=== PATIENT | male | born 1945 | race Caucasian/White ===

== ENCOUNTER 2018-01-10 13:11 | Outpatient (CLI) | payer OTHER ==
[2018-01-10 19:40] LABS: HIV RAPID SCREEN NEGATIVE (NEGATIVE)
[2018-01-11 11:18] LABS: HEPATITIS B SURFACE ANTIGEN NON-REACTIVE (NON-REACTIVE); HEPATITIS C ANTIBODY NON-REACTIVE (NON-REACTIVE)
[2018-01-11 13:36] LABS: HIV AG/AB 4TH GEN NON-REACTIVE (NON-REACTIVE)
== END 2018-01-10 13:12 | disposition home or self-care (01) ==
LOC: LAB.R 13:11
PROVIDERS: ATTEND Internal Medicine
DX: T75.89XA Other specified effects of external causes, initial encounter (principal)
CPT/HCPCS: 86803; 87340; 87389

== ENCOUNTER 2018-02-20 00:26 | Emergency (ER) | payer OTHER ==
--- NOTE | 2018-02-20 02:43 | ED Physician Documentation ---
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 The son is been given his father MiraLAX daily without results. He did do some manual disimpaction with small results and he was reluctant to do further. He states that the patient has had blood in his stool and a workup is scheduled for the of this month. The son notes that in the 2 months he has been taking care of him he has noted a pattern of constipation. Review of Systems Constitutional: denies: Fever Eyes: denies: Decreased vision Ears: denies: Ear pain Nose: denies: Congestion Throat: denies: Sore throat Respiratory: denies: Cough GI: reports: Abdominal Pain, Constipation : denies: Dysuria, Frequency Skin: denies: Rash Musculoskeletal: denies: Neck pain, Back pain, Extremity pain Neurologic: denies: Generalized weakness, Focal weakness, Numbness PD PAST MEDICAL HISTORY - Past Medical History Past Medical History: Yes Cardiovascular: Hypertension, High cholesterol, [place], Atrial fibrillation Neuro: CVA, Peripheral neuropathy Endocrine/Autoimmune: Type 2 diabetes : Indwelling catheter Musculoskeletal: Hemiplegia Other Past Medical History: 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, Agent [place] exposure, irritable bowel, - Past Surgical History General: Bowel surgery Ortho: Spine surgery Cardiovascular: CABG - Present Medications Home Medications: Ambulatory Orders Medication Instructions Recorded Confirmed Amiodarone [Pacerone] 200 mg PO DAILY 02/20/18 02/20/18 Apixaban [Eliquis] 5 mg PO DAILY 02/20/18 02/20/18 Carboxymethylcellulose Sodium 0 ml OP QID 02/20/18 02/20/18 [Lubricant Eye Drop] Cholecalciferol [Vitamin D3] 5,000 unit PO DAILY 02/20/18 02/20/18 Fluticasone [Flonase] 1 sprays JUAN C DAILY 02/20/18 02/20/18 Insulin Glargine [Lantus Solostar] 0 unit SQ DAILY 02/20/18 02/20/18 Levothyroxine [Synthroid] 15 mcg PO QDAC 02/20/18 02/20/18 Losartan [Cozaar] 12.5 mg PO DAILY 02/20/18 02/20/18 Metoprolol Tartrate [Lopressor] 25 mg PO BID 02/20/18 02/20/18 RX: Gabapentin 300 mg PO TID 02/20/18 02/20/18 RX: Glimepiride 4 mg PO DAILY 02/20/18 02/20/18 RX: Isosorbide Dinitrate 5 mg PO TID 02/20/18 02/20/18 RX: Magnesium Oxide 420 mg PO DAILY 02/20/18 02/20/18 RX: Mirtazapine 15 mg PO DAILY 02/20/18 02/20/18 Tamsulosin [Flomax] 0.4 mg PO DAILY 02/20/18 02/20/18 Ubidecarenone [Coenzyme Q-10] 0 mg PO DAILY 02/20/18 02/20/18 raNITIdine [Zantac] 150 mg PO DAILY 02/20/18 02/20/18 - Allergies Allergies/Adverse Reactions: Allergies Allergy/AdvReac Type Severity Reaction Status Date / Time codeine Allergy Unknown Verified 02/20/18 00:49 meperidine [From Demerol] Allergy Unknown Verified 02/20/18 00:49 acetaminophen [From Vicodin] AdvReac Itching Verified 02/20/18 00:49 hydrocodone [From Vicodin] AdvReac Itching Verified 02/20/18 00:49 - Social History Does the pt smoke?: No Smoking Status: Never smoker Does the pt drink ETOH?: Yes Does the pt have substance abuse?: No - POLST Patient has POLST: No PD ED PE NORMAL - Vitals Vital signs reviewed: Yes (normal ) - General General: No acute distress, Well developed/nourished - HEENT HEENT: Atraumatic, PERRL, EOMI - Respiratory Respiratory: No respiratory distress - Abdomen Abdomen: Normal bowel sounds, Soft, Non tender, Non distended, No organomegaly - Back Back: No CVA TTP, No spinal TTP - Derm Derm: Normal color, Warm and dry, No rash - Neuro Neuro: Normal speech Eye Opening: Spontaneous Motor: Obeys Commands Verbal: Oriented GCS Score: 15 - Psych Psych: Normal mood, Normal affect Results - Vitals Vitals: Vital Signs - 24 hr 02/20/18 02/20/18 00:25 03:26 Temperature 36.5 C Heart Rate 82 80 Respiratory 17 18 Rate Blood Pressure 112/62 102/62 O2 Saturation 96 95 Oxygen O2 Source Room air PD MEDICAL DECISION MAKING - ED course Complexity details: considered differential, d/w patient, d/w family ED course: 72-year-old male with a history of 6 days of constipation is administered a oil retention enema with excellent results. Departure - Departure Disposition: 01 Home, Self Care Clinical Impression: Constipation Condition: Stable Instructions: ED Constipation Follow-Up: Sammie Rush ARNP [Primary Care Provider] - Discharge Date/Time: 02/20/18 03:29
[2018-02-20 03:34] VITALS: BP 102/62
== END 2018-02-20 03:29 | disposition home or self-care (01) ==
LOC: EDUNIT# → ED 00:26
DX: K59.00 Constipation, unspecified (principal); I10 Essential (primary) hypertension; E11.42 Type 2 diabetes mellitus with diabetic polyneuropathy; E78.00 Pure hypercholesterolemia, unspecified; I25.2 Old myocardial infarction; I69.954 Hemiplegia and hemiparesis following unspecified cerebrovascular disease affecting left non-dominant side
CPT/HCPCS: 99283

== ENCOUNTER 2018-05-25 07:39 | Outpatient (CLI) | payer OTHER | END 2018-05-25 07:40 | disposition EMS.NT | LOC: EMS 07:39 | PROVIDERS: ATTEND Surgery | DX: R31.0 Gross hematuria (principal); Z96.0 Presence of urogenital implants ==

== ENCOUNTER 2018-05-31 22:15 | Outpatient (CLI) | payer OTHER | END 2018-05-31 22:16 | disposition short-term general hospital (02) | LOC: EMS 22:15 | PROVIDERS: ATTEND Surgery | DX: R34 Anuria and oliguria (principal); R30.9 Painful micturition, unspecified; R25.2 Cramp and spasm | CPT/HCPCS: A0425; A0429 ==

== ENCOUNTER 2018-08-10 07:12 | Outpatient (CLI) | payer OTHER | END 2018-08-10 07:13 | disposition critical access hospital (66) | LOC: EMS 07:12 | PROVIDERS: ATTEND Surgery | DX: M25.552 Pain in left hip (principal); S09.90XA Unspecified injury of head, initial encounter; M54.9 Dorsalgia, unspecified; W06.XXXA Fall from bed, initial encounter; Y92.003 Bedroom of unspecified non-institutional (private) residence as the place of occurrence of the external cause; Z79.01 Long term (current) use of anticoagulants | CPT/HCPCS: A0425; A0429 ==

== ENCOUNTER 2018-08-10 07:39 | Emergency (ER) | payer OTHER ==
--- NOTE | 2018-08-10 08:01 | ED Physician Documentation ---
PD HPI Fall - Stated complaint Stated Complaint: GLF - Chief complaint Chief Complaint: Trauma Hd/Nk - History obtained from History obtained from: Patient, EMS - History of Present Illness Fall distance: From bed Where injury occurred: Home Timing - onset: How many hours ago (1) Injury(ies) location: Left Uppper Extremity, Left Lower Extremity Quality of pain: Pain Associated symptoms: Neck pain. No: LOC, Nausea / vomiting Contributing factors: Anticoagulated Similar symptoms before: Has not had sx before - Additional information Additional information: The patient is a 72-year-old male with a history of CVA with left hemiparesis, insulin-dependent diabetes, atrial fibrillation on Eliquis, and coronary artery disease, who presents after falling out of bed this morning hitting his head. He denies loss of consciousness, nausea or vomiting. He complains of pain in his left shoulder and left hip. He denies headache or visual disturbance. He has not attempted to stand since the incident occurred, stating that he is not able to stand at baseline because of his left hemiparesis. He lives in his own home where his son is his caregiver. He has a chronic indwelling Bazan catheter. His blood sugar by paramedics report is 226. Review of Systems Constitutional: denies: Fever Eyes: denies: Decreased vision Ears: denies: Tinnitus/ringing Nose: denies: Congestion Throat: denies: Sore throat Cardiac: denies: Chest pain / pressure Respiratory: denies: Dyspnea, Cough GI: denies: Abdominal Pain, Nausea, Vomiting : reports: Other (Indwelling Bazan catheter.) Skin: denies: Rash Musculoskeletal: reports: Neck pain (Mild.), Back pain (Chronic lower back pain.), Joint pain (Left hip and left shoulder.) Neurologic: reports: Focal weakness (Left hemiplegia due to CVA.). denies: Headache, LOC PD PAST MEDICAL HISTORY - Past Medical History Cardiovascular: Hypertension, High cholesterol, [place], Atrial fibrillation Neuro: CVA, Peripheral neuropathy Endocrine/Autoimmune: Type 2 diabetes, HyPOthyroidism : Indwelling catheter Musculoskeletal: Hemiplegia - Past Surgical History General: Bowel surgery Ortho: Spine surgery Cardiovascular: CABG - Present Medications Home Medications: Ambulatory Orders Medication Instructions Recorded Confirmed Amiodarone [Pacerone] 200 mg PO DAILY 02/20/18 08/10/18 Apixaban [Eliquis] 5 mg PO BID 02/20/18 08/10/18 Carboxymethylcellulose Sodium 0 ml OP QID PRN 02/20/18 08/10/18 [Lubricant Eye Drop] Cholecalciferol [Vitamin D3] 5,000 unit PO DAILY 02/20/18 08/10/18 Fluticasone [Flonase] 1 sprays JUAN C DAILY 02/20/18 08/10/18 Gabapentin 300 mg PO BID 02/20/18 08/10/18 Glimepiride 4 mg PO DAILY 02/20/18 02/20/18 Insulin Glargine [Lantus Solostar] 0 unit SQ DAILY 02/20/18 02/20/18 Isosorbide Dinitrate 5 mg PO TID 02/20/18 08/10/18 Levothyroxine [Synthroid] 15 mcg PO QDAC 02/20/18 08/10/18 Losartan [Cozaar] 12.5 mg PO DAILY 02/20/18 08/10/18 Magnesium Oxide 420 mg PO BID 02/20/18 08/10/18 Metoprolol Tartrate [Lopressor] 25 mg PO BID 02/20/18 08/10/18 Mirtazapine 15 mg PO QPM 02/20/18 08/10/18 Tamsulosin [Flomax] 0.8 mg PO QPM 02/20/18 08/10/18 Ubidecarenone [Coenzyme Q-10] 0 mg PO DAILY 02/20/18 08/10/18 raNITIdine [Zantac] 150 mg PO BID 02/20/18 08/10/18 Nitrofurantoin Monohyd/M-Cryst 100 mg PO BID #10 capsule 08/10/18 [Macrobid 100 mg Capsule] - Allergies Allergies/Adverse Reactions: Allergies Allergy/AdvReac Type Severity Reaction Status Date / Time codeine Allergy Unknown Verified 08/10/18 07:50 meperidine [From Demerol] Allergy Unknown Verified 08/10/18 07:50 acetaminophen [From Vicodin] AdvReac Itching Verified 08/10/18 07:50 hydrocodone [From Vicodin] AdvReac Itching Verified 08/10/18 07:50 - Social History Does the pt smoke?: No Smoking Status: Never smoker Does the pt drink ETOH?: Yes Does the pt have substance abuse?: No - POLST Patient has POLST: No PD ED PE NORMAL - Vitals Vital signs reviewed: Yes (Borderline systolic hypertension initially.) - General General: Alert and oriented X 3, Well developed/nourished, Other ([place]o nditioned.) - HEENT HEENT: PERRL, EOMI, Pharynx benign, Other (There is a superficial abrasion at the lateral aspect of the left eyebrow, with associated ecchymosis.) - Neck Neck: Supple, no meningeal sign, Other (There is mild tenderness to palpation in the left paracervical region.) - Cardiac Cardiac: RRR, No murmur - Respiratory Respiratory: No respiratory distress, Clear bilaterally, Other (There is mild tenderness to palpation along the left side of the chest wall. No ecchymosis or bony step-off palpated.) - Abdomen Abdomen: Soft, Other (Mild diffuse discomfort to palpation, without guarding or rebound. No focal tenderness.) - Male Male : Other (Bazan catheter is in place. Urine appears cloudy.) - Back Back: No CVA TTP, No spinal TTP - Derm Derm: No rash - Extremities Extremities: No calf tenderness / cord, Other (Lymphedema of the left lower extremity. There is tenderness to palpation of the left hip, exacerbated with internal and external rotation of the left leg. There is also tenderness to palpation of the left shoulder. Flexion contractures of the left upper extremity.) - Neuro Neuro: Alert and oriented X 3, Normal speech, Other (Left hemiplegia consistent with previous stroke.) Results - Vitals Vitals: Oxygen O2 Source Room air - EKG (time done) 09:05 Rate: Rate (enter#) (69) Rhythm: NSR [place]: Normal Intervals: Prolonged ME (borderline), RBBB Ischemia: T wave inversion (in V1-V3, consistent with RBBB.) Compare to prior EKG: Old EKG unavailable Computer interpretation: Agree with computer - Labs Labs: Microbiology 08/10/18 07:58 Urine Culture - Preliminary Urine,Catheterized Laboratory Tests 08/10/18 08/10/18 08/10/18 07:58 07:58 07:58 WBC 12.6 H RBC 3.94 L Hgb 11.5 L Hct 34.3 L MCV 87.2 MCH 29.1 MCHC 33.4 RDW 16.3 H Plt Count 187 MPV 7.6 Neut # (Auto) 11.7 H Lymph # (Auto) 0.4 L [place] # (Auto) 0.2 Eos # (Auto) 0.0 Baso # (Auto) 0.2 H Absolute Nucleated RBC 0.00 Nucleated RBC % 0.0 Sodium 141 Potassium 4.3 Chloride 105 Carbon Dioxide 22 Anion Gap 14.0 H BUN 18 Creatinine 1.6 H Estimated GFR (MDRD) 43 L Glucose 253 H Lactic Acid Calcium 9.1 Total Bilirubin 0.9 AST 18 ALT 15 Alkaline Phosphatase 100 Troponin I < 0.04 Total Protein 7.2 Albumin 3.6 Globulin 3.6 Albumin/Globulin Ratio 1.0 Lipase 23 Urine Color Urine Clarity Urine pH Ur Specific [place] Urine Protein Urine Glucose (UA) Urine Ketones Urine Occult Blood Urine Nitrite Urine Bilirubin Urine Urobilinogen Ur Leukocyte Esterase Urine RBC Urine WBC Ur Squamous Epith Cells Urine Bacteria Ur Microscopic Review Urine Culture Comments 08/10/18 08/10/18 07:58 07:58 WBC RBC Hgb Hct MCV MCH MCHC RDW Plt Count MPV Neut # (Auto) Lymph # (Auto) [place] # (Auto) Eos # (Auto) Baso # (Auto) Absolute Nucleated RBC Nucleated RBC % Sodium Potassium Chloride Carbon Dioxide Anion Gap BUN Creatinine Estimated GFR (MDRD) Glucose Lactic Acid 1.4 Calcium Total Bilirubin AST ALT Alkaline Phosphatase Troponin I Total Protein Albumin Globulin Albumin/Globulin Ratio Lipase Urine Color YELLOW Urine Clarity CLOUDY Urine pH 7.0 Ur Specific [place] 1.015 Urine Protein 30 H Urine Glucose (UA) 250 H Urine Ketones 15 H Urine Occult Blood MODERATE H Urine Nitrite POSITIVE H Urine Bilirubin NEGATIVE Urine Urobilinogen 1 (NORMAL) Ur Leukocyte Esterase LARGE H Urine RBC 6-10 H Urine WBC >25 H Ur Squamous Epith Cells NONE SEEN Urine Bacteria Few Ur Microscopic Review INDICATED Urine Culture Comments INDICATED - Rads (name of study) 1-view CXR Radiology: Prelim report reviewed, EMP read contemporaneously, See rad report (Decreased left lung volume. Left perihilar, lower lung field areas of atelectasis or scarring. Old left second rib fracture. Old left clavicle fracture.) Head CT Radiology: Prelim report reviewed, EMP read contemporaneously, See rad report (1) No intracranial hemorrhage or skull fracture. 2) Mild diffuse cerebral volume loss. 3) Evidence of remote infarction involving the posterior limb of the right internal capsule.) C-spine CT Radiology: Prelim report reviewed, EMP read contemporaneously, See rad report (No fracture or subluxation in the cervical spine. Moderate multilevel degenerative change as described above.) Left hip Radiology: Prelim report reviewed, EMP read contemporaneously, See rad report (Osteopenia. No fracture on x-ray imaging. Note: Osteopenia can limit detection of trabecular fracture. If the patient cannot ambulate recommend MRI hip to exclude occult fracture.) Left shoulder Radiology: Prelim report reviewed, EMP read contemporaneously, See rad report (Moderate DJD. No new fracture.) PD MEDICAL DECISION MAKING - ED course Complexity details: reviewed old records, reviewed results, re-evaluated patient, considered differential, d/w patient, d/w family ED course: The patient's presentation is significant for urinary tract infection in a non- ambulatory male with a chronic indwelling Bazan catheter. He does not appear septic, and his clinical evaluation does not suggest pyelonephritis. Evaluation for possible injuries resulting from rolling out of bed reveals contusion to the left side of the head, without intracranial injury on head CT. Additionally there is no CT evidence of C-spine fracture, and no xray evidence of shoulder fracture or left hip fracture. The patient is nonambulatory at baseline, so ambulation was not able to be tested in the emergency department. Treatment in the emergency department included administration of ceftriaxone 1 g IV, and replacement of the Bazan catheter. I discussed with him and his son the results of the work-up, outpatient antibiotic treatment and follow-up, as well as potentially worrisome signs or symptoms that should prompt reevaluation in the emergency department. He is being discharged with a prescription for Macrobid. Departure - Departure Disposition: 01 Home, Self Care Clinical Impression: Left hemiplegia Fall Qualifiers: Encounter type: initial encounter Qualified Code(s): W19.XXXA - Unspecified fall, initial encounter Scalp contusion Qualifiers: Encounter type: initial encounter Qualified Code(s): S00.03XA - Contusion of scalp, initial encounter UTI (urinary tract infection) Qualifiers: Urinary tract infection type: acute cystitis Hematuria presence: without hematuria Qualified Code(s): N30.00 - Acute cystitis without hematuria Contusion of left shoulder Qualifiers: Encounter type: initial encounter Qualified Code(s): S40.012A - Contusion of left shoulder, initial encounter Contusion of left hip Qualifiers: Encounter type: initial encounter Qualified Code(s): S70.02XA - Contusion of left hip, initial encounter Diabetes mellitus with hyperglycemia Qualifiers: Diabetes mellitus type: type 2 Diabetes mellitus fdc insulin use: with terminal operations manager use Qualified Code(s): E11.65 - Type 2 diabetes mellitus with hyperglycemia; Z79.4 - halfway (current) use of insulin Condition: Stable Instructions: ED UTI Cystitis Male Follow-Up: Sammie Rush ARNP [Physician No Access] - Prescriptions: Nitrofurantoin Monohyd/M-Cryst [Macrobid 100 mg Capsule] 100 mg PO BID #10 capsule Comments: Take Macrobid twice daily as prescribed. Drink plenty of fluids, including cranberry juice. You can use ibuprofen, up to 800 mg 3 times daily, if needed for discomfort. Follow-up with your primary physician within 2 weeks. Call to schedule an appointment. Return to the emergency department if you develop increasing abdominal pain, fever with shaking chills, shortness of breath, or otherwise worsening symptoms. Discharge Date/Time: 08/10/18 11:58
[2018-08-10 08:08] LABS: BASOPHILS # (AUTO) 0.2 10^3/uL (0.0-0.1); BASOPHILS % (AUTO) 1.5 %; BILIRUBIN,URINE NEGATIVE (NEGATIVE); EOSINOPHILS % (AUTO) 0.4 %; GLUCOSE, URINE (UA) 250 mg/dL (NEGATIVE); HGB - HEMOGLOBIN 11.5 g/dL (14.0-18.0); KETONES,URINE (UA) 15 mg/dL (NEGATIVE); LEUKOCYTE ESTERASE, URINE LARGE (NEGATIVE); LYMPHOCYTES # (AUTO) 0.4 10^3/uL (1.5-3.5); LYMPHOCYTES % (AUTO) 3.2 %; MEAN CORPUSCULAR HEMOGLOBIN 29.1 pg (27.0-31.0); MEAN CORPUSCULAR HGB CONC 33.4 g/dL (32.0-36.0); MEAN CORPUSCULAR VOLUME 87.2 fL (80.0-94.0); MEAN PLATELET VOLUME 7.6 fL (7.4-11.4); MONOCYTES # (AUTO) 0.2 10^3/uL (0.0-1.0); MONOCYTES % (AUTO) 1.9 %; NEUTROPHILS # (AUTO) 11.7 10^3/uL (1.5-6.6); NITRITE,URINE POSITIVE (NEGATIVE); OCCULT BLOOD,URINE MODERATE (NEGATIVE); PLT - PLATELET COUNT 187 10^3/uL (130-450); PROTEIN,URINE 30 mg/dL (NEGATIVE); RED BLOOD COUNT 3.94 10^6/uL (4.70-6.10); RED CELL DISTRIBUTION WIDTH 16.3 % (12.0-15.0); UROBILINOGEN,URINE 1 (NORMAL) E.U./dL (NORMAL); WHITE BLOOD COUNT 12.6 x10^3/uL (4.8-10.8)
[2018-08-10 08:11] LABS: CLARITY,URINE CLOUDY (CLEAR)
[2018-08-10 08:19] LABS: BACTERIA,URINE Few /HPF (None Seen); SQUAMOUS EPITHELIAL CELL,UR NONE SEEN (<= Few)
[2018-08-10 08:26] LABS: ALBUMIN 3.6 g/dL (3.2-5.5); BILIRUBIN,TOTAL 0.9 mg/dL (0.2-1.0); CALCIUM 9.1 mg/dL (8.5-10.3); CREATININE 1.6 mg/dL (0.6-1.2); TOTAL PROTEIN 7.2 g/dL (6.7-8.2)
--- NOTE | 2018-08-10 08:39 | CT Report ---
Reason: fall, hitting head; on blood thinner. Procedure Date: 08/10/2018 Accession Number: [id number] / [id number] Procedure: CT - HEAD WO CPT Code: FULL RESULT: EXAM: CT HEAD EXAM DATE: 08/10/2018 08:24 AM. CLINICAL HISTORY: Fall, hitting head; on blood thinner. COMPARISON: CERVICAL SPINE W/O 08/10/2018 8:12 AM. TECHNIQUE: Multiaxial CT images were obtained from the foramen magnum to the vertex. Reformats: Sagittal and coronal. IV contrast: None. In accordance with CT protocol optimization, one or more of the following dose reduction techniques were utilized for this exam: automated exposure control, adjustment of mA and/or KV based on patient size, or use of iterative reconstructive technique. FINDINGS: The patient is rotated in the scanner, and sagittal and coronal reconstructions are not reconstructed orthogonal to the axis of the head. Parenchyma: No midline shift. Encephalomalacia consistent with remote lacunar infarction at the posterior limb of the right internal capsule. No high-density lesions. No mass-effect. [place]-white differentiation is intact. Extraaxial Spaces: Mild generalized sulcal prominence. No subdural or epidural collections identified. Ventricles: Mild generalized ventriculomegaly. Sinuses and Orbits: Bilateral cataract surgery. Visualized paranasal sinuses are clear except for mild mucosal thickening in anterior ethmoid air cells bilaterally. Mastoids and middle ears are clear. Bones: No evidence of fracture or calvarial defect. Other: Small subgaleal scalp contusion at the vertex. Moderate calcification in bilateral cavernous internal carotid arteries. IMPRESSION: 1. No intracranial hemorrhage or skull fracture. 2. Mild diffuse cerebral volume loss. 3. Evidence of remote infarction involving the posterior limb of the right internal capsule. RAD[facility]
--- NOTE | 2018-08-10 08:43 | CT Report ---
Reason: neck pain after falling out of bed Procedure Date: 08/10/2018 Accession Number: [id number] / [id number] Procedure: CT - CERVICAL SPINE WO CPT Code: FULL RESULT: EXAM: CT CERVICAL SPINE WITHOUT CONTRAST DATE: 08/10/2018 08:24 AM. HISTORY: Neck pain after falling out of bed. COMPARISONS: HEAD W/O 08/10/2018 8:12 AM. TECHNIQUE: Thin-section axial images were acquired of the cervical spine without contrast. Post-processing: Coronal and sagittal reformats. Other: None. In accordance with CT protocol optimization, one or more of the following dose reduction techniques were utilized for this exam: automated exposure control, adjustment of mA and/or KV based on patient size, or use of iterative reconstructive technique. FINDINGS: Alignment: There is a minimal right convex cervical spine curvature. There is no subluxation. Bones: No fracture or focal bone lesion from the craniocervical junction through T1. Interspace Levels/Facets: There is moderate osteoarthritis of the pre-dens interval. There is mild disk height loss at C2-C3 and C3-C4. There is moderate disk height loss and mild anterior and posterior endplate osteophyte formation indicating degenerative disk disease C4-C5 through C7-T1. There is moderate left C2-C3 and mild left C3-C4 facet osteoarthritis. Musculature: Normal. No fatty atrophy. Other: The paravertebral and prevertebral soft tissues are unremarkable. The lung apices are clear. IMPRESSION: 1. No fracture or subluxation in the cervical spine. 2. Moderate multilevel degenerative change as described above. [facility]IA
--- NOTE | 2018-08-10 09:15 | XRAY Report ---
Reason: left shoulder pain after falling out of bed Procedure Date: 08/10/2018 Accession Number: [id number] / [id number] Procedure: XR - Shoulder 3 View LT CPT Code: FULL RESULT: EXAM: LEFT SHOULDER RADIOGRAPHY EXAM DATE: 08/10/2018 08:42 AM. CLINICAL HISTORY: Left shoulder pain after falling out of bed. COMPARISON: None. TECHNIQUE: 3 views. FINDINGS: Bones: Old left clavicle fracture. Joints: AC joint hypertrophy. Glenohumeral joint osteophyte and joint space narrowing. Soft tissues: Soft tissue calcifications IMPRESSION: Moderate DJD. No new fracture RADIA
--- NOTE | 2018-08-10 09:15 | XRAY Report ---
Reason: left chest wall pain after falling out of bed. Procedure Date: 08/10/2018 Accession Number: [id number] / [id number] Procedure: XR - Chest 1 View X-Ray CPT Code: 74684 FULL RESULT: EXAM: CHEST RADIOGRAPHY EXAM DATE: 08/10/2018 08:42 AM. CLINICAL HISTORY: Left chest wall pain after falling out of bed. COMPARISON: None. TECHNIQUE: 1 view. FINDINGS: Lungs/Pleura: Decreased left lung volume. Left perihilar, lower lung field areas of atelectasis or scarring. Mediastinum: Poststernotomy heart size normal. Other: Old left second rib fracture. Old left clavicle fracture IMPRESSION: Areas of atelectasis or scarring left lung. RADIA
--- NOTE | 2018-08-10 09:16 | XRAY Report ---
Reason: left hip pain after falling out of bed Procedure Date: 08/10/2018 Accession Number: [id number] / [id number] Procedure: XR - Hip w/Pelvis 2-3V LT CPT Code: FULL RESULT: EXAM: LEFT HIP/PELVIS RADIOGRAPHY EXAM DATE: 08/10/2018 08:42 AM HISTORY: Left hip pain after falling out of bed. COMPARISONS: None. TECHNIQUE: 2 views. FINDINGS: Bones: Osteopenia is present. No fractures or bone lesion. Joints: Osteophyte bilateral hips. Femoral heads normally situated no dislocation Soft Tissues: Vascular calcification No soft tissue swelling. IMPRESSION: 1. Osteopenia. No fracture on x-ray imaging. 2. DJD Note: Osteopenia can limit detection of trabecular fracture. If the patient cannot ambulate, recommend MRI hip to exclude occult fracture. [facility]
[2018-08-10] MEDS ORDERED: cefTRIAXone 1 GM in SODIUM CHLORIDE 0.9% MINIBAG 100 ML IV STA (09:43)
[2018-08-10] MEDS ORDERED: ACETAMINOPHEN 325 MG TABLET PO STA (11:55)
[2018-08-10 11:57] VITALS: BP 127/74
== END 2018-08-10 11:58 | disposition home or self-care (01) ==
LOC: EDUNIT# → ED 07:39
DX: S00.03XA Contusion of scalp, initial encounter (principal); S40.012A Contusion of left shoulder, initial encounter; S70.02XA Contusion of left hip, initial encounter; S00.212A Abrasion of left eyelid and periocular area, initial encounter; W06.XXXA Fall from bed, initial encounter; Y93.89 Activity, other specified; Y92.003 Bedroom of unspecified non-institutional (private) residence as the place of occurrence of the external cause; N30.00 Acute cystitis without hematuria; I69.354 Hemiplegia and hemiparesis following cerebral infarction affecting left non-dominant side; I48.91 Unspecified atrial fibrillation; Z79.01 Long term (current) use of anticoagulants; E11.65 Type 2 diabetes mellitus with hyperglycemia; E11.42 Type 2 diabetes mellitus with diabetic polyneuropathy; Z79.4 Long term (current) use of insulin; I10 Essential (primary) hypertension; I45.10 Unspecified right bundle-branch block; I25.10 Atherosclerotic heart disease of native coronary artery without angina pectoris; Z95.1 Presence of aortocoronary bypass graft; M50.33 Other cervical disc degeneration, cervicothoracic region; M47.812 Spondylosis without myelopathy or radiculopathy, cervical region; M19.012 Primary osteoarthritis, left shoulder; M16.12 Unilateral primary osteoarthritis, left hip; M85.88 Other specified disorders of bone density and structure, other site
CPT/HCPCS: 36415; 51702; 70450; 71045; 72125; 73030; 73502; 80053; 81001; 83605; 83690; 84484; 85025; 87086; 87181; 93005; 96365; 99284; A9270; 81003

== ENCOUNTER 2018-08-10 12:00 | Outpatient (CLI) | payer OTHER | END 2018-08-10 12:01 | disposition home or self-care (01) | LOC: EMS 12:00 | PROVIDERS: ATTEND Surgery | DX: I69.354 Hemiplegia and hemiparesis following cerebral infarction affecting left non-dominant side (principal); Z74.01 Bed confinement status | CPT/HCPCS: A0425; A0429 ==

== ENCOUNTER 2018-10-13 14:31 | Outpatient (CLI) | payer OTHER | END 2018-10-13 14:32 | disposition short-term general hospital (02) | LOC: EMS 14:31 | PROVIDERS: ATTEND Surgery | DX: R30.0 Dysuria (principal) | CPT/HCPCS: A0425; A0429 ==

== ENCOUNTER 2018-11-11 10:59 | Outpatient (CLI) | payer OTHER | END 2018-11-11 11:00 | disposition short-term general hospital (02) | LOC: EMS 10:59 | PROVIDERS: ATTEND Surgery | DX: R39.89 Other symptoms and signs involving the genitourinary system (principal); R10.30 Lower abdominal pain, unspecified; N48.89 Other specified disorders of penis | CPT/HCPCS: A0425; A0429 ==

== ENCOUNTER 2019-01-27 08:31 | Outpatient (CLI) | payer OTHER | END 2019-01-27 08:32 | disposition short-term general hospital (02) | LOC: EMS 08:31 | PROVIDERS: ATTEND Surgery | DX: R10.30 Lower abdominal pain, unspecified (principal); R39.89 Other symptoms and signs involving the genitourinary system | CPT/HCPCS: A0425; A0429 ==

== ENCOUNTER 2019-05-02 17:56 | Outpatient (CLI) | payer OTHER | END 2019-05-02 17:57 | disposition critical access hospital (66) | LOC: EMS 17:56 | PROVIDERS: ATTEND Surgery | DX: R10.819 Abdominal tenderness, unspecified site (principal); R31.9 Hematuria, unspecified; R39.89 Other symptoms and signs involving the genitourinary system | CPT/HCPCS: A0425; A0429 ==

== ENCOUNTER 2019-05-02 18:20 | Emergency (ER) | payer OTHER ==
--- NOTE | 2019-05-02 18:47 | ED Physician Documentation ---
History of Present Illness - Stated complaint Stated Complaint: MALE - Chief complaint Chief Complaint: General - History obtained from History obtained from: Patient - History of Present Illness Timing: Other (73-year-old gentleman with think a neurogenic bladder, definitely has diabetic neuropathy with labile blood sugars. 2 weeks ago he had a suprapubic [facility] placed [facility]. Over the last couple of days he is developed redness and drainage around the catheter site with cloudy urine in the bag and chills over the last 24 hours.) Review of Systems Ten Systems: 10 systems reviewed and negative Constitutional: reports: Chills. denies: Fever Cardiac: denies: Chest pain / pressure, Palpitations Respiratory: denies: Dyspnea, Cough PD PAST MEDICAL HISTORY - Past Medical History Past Medical History: Yes Cardiovascular: Hypertension, High cholesterol, [place], Atrial fibrillation Neuro: CVA, Peripheral neuropathy Endocrine/Autoimmune: Type 2 diabetes, HyPOthyroidism : Indwelling catheter Musculoskeletal: Hemiplegia Other Past Medical History: suprapublic cath - Past Surgical History Past Surgical History: Yes General: Bowel surgery Ortho: Spine surgery Cardiovascular: CABG - Present Medications Home Medications: Ambulatory Orders Medication Instructions Recorded Confirmed Amiodarone [Pacerone] 200 mg PO DAILY 02/20/18 08/10/18 Apixaban [Eliquis] 5 mg PO BID 02/20/18 08/10/18 Carboxymethylcellulose Sodium 0 ml OP QID PRN 02/20/18 08/10/18 [Lubricant Eye Drop] Cholecalciferol [Vitamin D3] 5,000 unit PO DAILY 02/20/18 08/10/18 Fluticasone [Flonase] 1 sprays JUAN C DAILY 02/20/18 08/10/18 Gabapentin 300 mg PO BID 02/20/18 08/10/18 Glimepiride 4 mg PO DAILY 02/20/18 02/20/18 Insulin Glargine [Lantus Solostar] 0 unit SQ DAILY 02/20/18 02/20/18 Isosorbide Dinitrate 5 mg PO TID 02/20/18 08/10/18 Levothyroxine [Synthroid] 15 mcg PO QDAC 02/20/18 08/10/18 Losartan [Cozaar] 12.5 mg PO DAILY 02/20/18 08/10/18 Magnesium Oxide 420 mg PO BID 02/20/18 08/10/18 Metoprolol Tartrate [Lopressor] 25 mg PO BID 02/20/18 08/10/18 Mirtazapine 15 mg PO QPM 02/20/18 08/10/18 Tamsulosin [Flomax] 0.8 mg PO QPM 02/20/18 08/10/18 Ubidecarenone [Coenzyme Q-10] 0 mg PO DAILY 02/20/18 08/10/18 raNITIdine [Zantac] 150 mg PO BID 02/20/18 08/10/18 Nitrofurantoin Monohyd/M-Cryst 100 mg PO BID #10 capsule 08/10/18 [Macrobid 100 mg Capsule] Cefdinir 300 mg PO BID #20 capsule 05/02/19 - Allergies Allergies/Adverse Reactions: Allergies Allergy/AdvReac Type Severity Reaction Status Date / Time codeine Allergy Unknown Verified 05/02/19 18:30 meperidine [From Demerol] Allergy Unknown Verified 05/02/19 18:30 acetaminophen [From Vicodin] AdvReac Itching Verified 05/02/19 18:30 hydrocodone [From Vicodin] AdvReac Itching Verified 05/02/19 18:30 - Social History Does the pt smoke?: No Smoking Status: Never smoker Does the pt drink ETOH?: Yes Does the pt have substance abuse?: No - POLST Patient has POLST: No PD ED PE NORMAL - Vitals Vital signs reviewed: Yes - General General: Alert and oriented X 3, No acute distress - HEENT HEENT: PERRL, EOMI - Neck Neck: Supple, no meningeal sign, No bony TTP - Cardiac Cardiac: RRR, No murmur - Respiratory Respiratory: No respiratory distress, Clear bilaterally - Abdomen Abdomen: Other (There is some redness and cellulitis and a small amount of drainage right around his suprapubic catheter. Belly is nontender. Urine in the bag is purulent.) - Derm Derm: Normal color, Warm and dry - Extremities Extremities: No edema, No calf tenderness / cord - Neuro Neuro: Alert and oriented X 3, Other (Left-sided deficits from prior stroke) Results - Vitals Vitals: Vital Signs - 24 hr 05/02/19 18:25 Temperature 36.8 C Heart Rate 64 Respiratory 18 Rate Blood Pressure 121/71 O2 Saturation 100 Oxygen O2 Source Room air - Labs Labs: Laboratory Tests 05/02/19 05/02/19 05/02/19 19:14 19:14 19:14 WBC 9.5 RBC 3.74 L Hgb 11.7 L Hct 34.4 L MCV 92.0 MCH 31.3 H MCHC 34.0 RDW 15.3 H Plt Count 244 MPV 8.9 Neut # (Auto) 6.8 H Lymph # (Auto) 1.7 [place] # (Auto) 0.6 Eos # (Auto) 0.3 Baso # (Auto) 0.1 Absolute Nucleated RBC 0.00 Nucleated RBC % 0.0 Sodium 138 Potassium 4.4 Chloride 104 Carbon Dioxide 23 Anion Gap 11.0 BUN 32 H Creatinine 1.7 H Estimated GFR (MDRD) 40 L Glucose 157 H Lactic Acid 1.4 Calcium 9.1 Total Bilirubin 1.0 AST 20 ALT 23 Alkaline Phosphatase 81 Total Protein 7.1 Albumin 3.4 Globulin 3.7 Albumin/Globulin Ratio 0.9 L Lipase 38 Urine Color Urine Clarity Urine pH Ur Specific [place] Urine Protein Urine Glucose (UA) Urine Ketones Urine Occult Blood Urine Nitrite Urine Bilirubin Urine Urobilinogen Ur Leukocyte Esterase Urine RBC Urine WBC Urine WBC Clumps Ur Squamous Epith Cells Urine Bacteria Ur Microscopic Review Urine Culture Comments 05/02/19 19:50 WBC RBC Hgb Hct MCV MCH MCHC RDW Plt Count MPV Neut # (Auto) Lymph # (Auto) [place] # (Auto) Eos # (Auto) Baso # (Auto) Absolute Nucleated RBC Nucleated RBC % Sodium Potassium Chloride Carbon Dioxide Anion Gap BUN Creatinine Estimated GFR (MDRD) Glucose Lactic Acid Calcium Total Bilirubin AST ALT Alkaline Phosphatase Total Protein Albumin Globulin Albumin/Globulin Ratio Lipase Urine Color YELLOW Urine Clarity CLOUDY Urine pH 7.5 Ur Specific [place] 1.015 Urine Protein 100 H Urine Glucose (UA) NEGATIVE Urine Ketones NEGATIVE Urine Occult Blood LARGE H Urine Nitrite NEGATIVE Urine Bilirubin NEGATIVE Urine Urobilinogen 1 (NORMAL) Ur Leukocyte Esterase LARGE H Urine RBC 6-10 H Urine WBC >25 H Urine WBC Clumps PRESENT Ur Squamous Epith Cells NONE SEEN Urine Bacteria Many H Ur Microscopic Review INDICATED Urine Culture Comments INDICATED PD MEDICAL DECISION MAKING - ED course ED course: 73-year-old gentleman with a 2-week old suprapubic catheter presents with mild cellulitis around the catheter and likely a UTI. 73-year-old gentleman with recent suprapubic catheter placement, mild surrounding cellulitis, white count was reassuring. Blood cultures and urine cultures were drawn. Previous urine cultures were reviewed and he is started on a third-generation cephalosporin pending follow-up. Departure - Departure Disposition: 01 Home, Self Care Clinical Impression: UTI (urinary tract infection) Qualifiers: Urinary tract infection type: catheter-associated UTI Indwelling urinary catheter type: cystostomy catheter Encounter type: initial encounter Qualified Code(s): T83.510A - Infection and inflammatory reaction due to cystostomy catheter, initial encounter; N39.0 - Urinary tract infection, site not specified Condition: Good Record reviewed to determine appropriate education?: Yes Prescriptions: Cefdinir 300 mg PO BID #20 capsule Comments: Your blood work today is reassuring with a white count of 9-1/2, mild renal insufficiency which is a chronic issue, today's creatinine was 1.7. He did have an infected urine. He received 2 g of cefepime here in the department and a prescription for third-generation cephalosporin. We will culture your urine, you should follow-up with your urologist tomorrow or [facility] at the [facility]. Return for new or worsening symptoms.
[2019-05-02 19:26] LABS: BASOPHILS # (AUTO) 0.1 10^3/uL (0.0-0.1); BASOPHILS % (AUTO) 0.5 %; EOSINOPHILS # (AUTO) 0.3 10^3/uL (0.0-0.7); EOSINOPHILS % (AUTO) 3.6 %; HGB - HEMOGLOBIN 11.7 g/dL (14.0-18.0); LYMPHOCYTES # (AUTO) 1.7 10^3/uL (1.5-3.5); LYMPHOCYTES % (AUTO) 17.4 %; MEAN CORPUSCULAR HEMOGLOBIN 31.3 pg (27.0-31.0); MEAN PLATELET VOLUME 8.9 fL (7.4-11.4); MONOCYTES # (AUTO) 0.6 10^3/uL (0.0-1.0); MONOCYTES % (AUTO) 6.5 %; NEUTROPHILS # (AUTO) 6.8 10^3/uL (1.5-6.6); NEUTROPHILS % (AUTO) 71.5 %; PLT - PLATELET COUNT 244 10^3/uL (130-450); RED BLOOD COUNT 3.74 10^6/uL (4.70-6.10); RED CELL DISTRIBUTION WIDTH 15.3 % (12.0-15.0); WHITE BLOOD COUNT 9.5 x10^3/uL (4.8-10.8)
[2019-05-02 19:37] LABS: ALBUMIN 3.4 g/dL (3.2-5.5); ALBUMIN/GLOBULIN RATIO 0.9 (1.0-2.2); CALCIUM 9.1 mg/dL (8.5-10.3); CREATININE 1.7 mg/dL (0.6-1.2); TOTAL PROTEIN 7.1 g/dL (6.7-8.2)
[2019-05-02 20:03] LABS: BILIRUBIN,URINE NEGATIVE (NEGATIVE); GLUCOSE, URINE (UA) NEGATIVE (NEGATIVE); KETONES,URINE (UA) NEGATIVE (NEGATIVE); LEUKOCYTE ESTERASE, URINE LARGE (NEGATIVE); NITRITE,URINE NEGATIVE (NEGATIVE); OCCULT BLOOD,URINE LARGE (NEGATIVE); PH,URINE 7.5 PH (5.0-7.5); PROTEIN,URINE 100 mg/dL (NEGATIVE); UROBILINOGEN,URINE 1 (NORMAL) E.U./dL (NORMAL)
[2019-05-02 20:09] LABS: CLARITY,URINE CLOUDY (CLEAR)
[2019-05-02 20:17] LABS: BACTERIA,URINE Many /HPF (None Seen); SQUAMOUS EPITHELIAL CELL,UR NONE SEEN (<= Few); WBC CLUMPS,URINE PRESENT
[2019-05-02] MEDS ORDERED: CEFEPIME 2 GM in SODIUM CHLORIDE 0.9% MINIBAG 100 ML IV STA (20:25)
[2019-05-02 22:33] VITALS: BP 122/60
== END 2019-05-02 22:33 | disposition home or self-care (01) ==
LOC: EDUNIT# → ED 18:20
DX: T83.510A Infection and inflammatory reaction due to cystostomy catheter, initial encounter (principal); Y83.3 Surgical operation with formation of external stoma as the cause of abnormal reaction of the patient, or of later complication, without mention of misadventure at the time of the procedure; L03.311 Cellulitis of abdominal wall; E11.42 Type 2 diabetes mellitus with diabetic polyneuropathy; Z79.4 Long term (current) use of insulin; I10 Essential (primary) hypertension; I48.91 Unspecified atrial fibrillation; Z79.01 Long term (current) use of anticoagulants; I69.954 Hemiplegia and hemiparesis following unspecified cerebrovascular disease affecting left non-dominant side
CPT/HCPCS: 36415; 80053; 81001; 81003; 83605; 83690; 85025; 87040; 87086; 87181; 96365; 99284

== ENCOUNTER 2019-05-02 22:50 | Outpatient (CLI) | payer OTHER | END 2019-05-02 22:51 | disposition home or self-care (01) | LOC: EMS 22:50 | PROVIDERS: ATTEND Surgery | DX: N39.0 Urinary tract infection, site not specified (principal); I69.959 Hemiplegia and hemiparesis following unspecified cerebrovascular disease affecting unspecified side | CPT/HCPCS: A0425; A0428 ==

== ENCOUNTER 2019-05-05 14:09 | Outpatient (CLI) | payer OTHER | END 2019-05-05 14:10 | disposition critical access hospital (66) | LOC: EMS 14:09 | PROVIDERS: ATTEND Surgery | DX: R10.9 Unspecified abdominal pain (principal) | CPT/HCPCS: A0425; A0429 ==

== ENCOUNTER 2019-05-05 14:37 | Emergency (ER) | payer OTHER ==
--- NOTE | 2019-05-05 14:53 | ED Physician Documentation ---
History of Present Illness - Stated complaint Stated Complaint: ABD PX - Chief complaint Chief Complaint: Abd Pain - History obtained from History obtained from: Patient - History of Present Illness Timing: How many weeks ago (2) Pain level max: 5 Pain level now: 4 - Additonal information Additional information: 73-year-old male presents the emergency department stating that he was seen here yesterday for abdominal pain, diagnosed with cellulitis of the abdominal wall as well as a potential catheter associated UTI. He states that they received a phone call this morning instructing him to come back to the emergency department. No changes. No fevers. No vomiting. No worsening of his abdominal pain. His suprapubic catheter was placed 2 weeks ago. Review of Systems Ten Systems: 10 systems reviewed and negative Constitutional: denies: Fever, Chills GI: denies: Vomiting, Diarrhea Skin: denies: Rash Musculoskeletal: denies: Neck pain, Back pain Neurologic: denies: Headache PD PAST MEDICAL HISTORY - Past Medical History Cardiovascular: Hypertension, High cholesterol, [place], Atrial fibrillation Neuro: CVA, Peripheral neuropathy Endocrine/Autoimmune: Type 2 diabetes, HyPOthyroidism : Indwelling catheter Musculoskeletal: Hemiplegia - Past Surgical History Past Surgical History: Yes General: Bowel surgery Ortho: Spine surgery Cardiovascular: CABG - Present Medications Home Medications: Ambulatory Orders Medication Instructions Recorded Confirmed Amiodarone [Pacerone] 200 mg PO DAILY 02/20/18 05/05/19 Apixaban [Eliquis] 5 mg PO BID 02/20/18 05/05/19 Fluticasone [Flonase] 2 sprays JUAN C DAILY PRN 02/20/18 05/05/19 Gabapentin 300 mg PO BID 02/20/18 05/05/19 Glimepiride 2 mg PO [id number] 02/20/18 05/05/19 Insulin Glargine [Lantus Solostar] 10 unit SQ QPM PRN 02/20/18 05/05/19 Isosorbide Dinitrate 5 mg PO BID 02/20/18 05/05/19 Losartan [Cozaar] 12.5 mg PO DAILY 02/20/18 05/05/19 Ascorbic Acid [Vitamin C] 500 mg PO DAILY 05/05/19 05/05/19 Carboxymethylcellulose Sodium 1 drops EACHEYE Q2H PRN 05/05/19 05/05/19 [Restore Plus] Cefdinir 300 mg PO [id number] 05/05/19 05/05/19 Docusate Sodium 200 mg PO DAILY 05/05/19 05/05/19 Levothyroxine Sodium 150 mcg PO QDAC 05/05/19 05/05/19 Magnesium Oxide 400 mg PO 1200,1900 05/05/19 05/05/19 Melatonin 6 mg PO QPM 05/05/19 05/05/19 Metoprolol Succinate 50 mg PO BID 05/05/19 05/05/19 Mirtazapine 30 mg PO QPM 05/05/19 05/05/19 Oxybutynin Chloride 5 mg PO BID 05/05/19 05/05/19 - Allergies Allergies/Adverse Reactions: Allergies Allergy/AdvReac Type Severity Reaction Status Date / Time codeine Allergy Unknown Verified 05/05/19 14:45 meperidine [From Demerol] Allergy Unknown Verified 05/05/19 14:45 acetaminophen [From Vicodin] AdvReac Itching Verified 05/05/19 14:45 hydrocodone [From Vicodin] AdvReac Itching Verified 05/05/19 14:45 - Social History Does the pt smoke?: No Smoking Status: Never smoker Does the pt drink ETOH?: Yes Does the pt have substance abuse?: No - POLST Patient has POLST: No PD ED PE NORMAL - Vitals Vital signs reviewed: Yes - General General: Alert and oriented X 3, No acute distress - HEENT HEENT: Moist mucous membranes - Neck Neck: Supple, no meningeal sign - Cardiac Cardiac: RRR, Strong equal pulses - Respiratory Respiratory: No respiratory distress, Clear bilaterally - Abdomen Abdomen: Soft, Non tender, Non distended - Derm Derm: Warm and dry - Neuro Neuro: Alert and oriented X 3 - Psych Psych: Normal mood, Normal affect Results - Vitals Vitals: Vital Signs - 24 hr 05/05/19 14:39 Temperature 36.1 C L Heart Rate 73 Respiratory 20 Rate Blood Pressure 149/126 H O2 Saturation 99 Oxygen O2 Source Room air PD MEDICAL DECISION MAKING - ED course Complexity details: reviewed old records, re-evaluated patient, considered differential, d/w patient ED course: There was a misunderstanding with the caregiver at home and the culture nurse here. He did not need to be reevaluated today. No change in symptoms. No fevers. Chronic abdominal pain. We will have him follow-up next week with his doctor. We will have him continue his current medications. Urine culture is not fully returned yet, there is no sensitivities performed yet. Patient counseled regarding signs and symptoms for which I believe and urgent re- evaluation would be necessary. Patient with good understanding of and agreement to plan and is comfortable going home at this time This document was made in part using voice recognition software. While efforts are made to proofread this document, sound alike and grammatical errors may occur. Departure - Departure Disposition: Home, Self Care Clinical Impression: UTI (urinary tract infection) Qualifiers: Urinary tract infection type: acute cystitis Hematuria presence: without hematuria Qualified Code(s): N30.00 - Acute cystitis without hematuria Condition: Good Instructions: ED UTI Cystitis Male Follow-Up: Sammie Rush ARNP [Primary Care Provider] - Within 3 Days Comments: Continue the antibiotics as previously prescribed. Return if you worsen including fevers, worsening pain or other new or worsening symptoms. Your catheter may be colonized with bacteria and this may not actually represent an infection. Follow-up with your doctor for further care
[2019-05-05] MEDS ORDERED: IBUPROFEN 400 MG TABLET PO STA (14:58)
[2019-05-05 15:47] VITALS: BP 149/105
== END 2019-05-05 15:46 | disposition home or self-care (01) ==
LOC: EDUNIT# → ED 14:37
DX: N30.00 Acute cystitis without hematuria (principal); E11.42 Type 2 diabetes mellitus with diabetic polyneuropathy; Z79.4 Long term (current) use of insulin
CPT/HCPCS: 99283; 99284; A9270

== ENCOUNTER 2019-05-05 15:48 | Outpatient (CLI) | payer OTHER | END 2019-05-05 15:49 | disposition home or self-care (01) | LOC: EMS 15:48 | PROVIDERS: ATTEND Surgery | DX: I69.954 Hemiplegia and hemiparesis following unspecified cerebrovascular disease affecting left non-dominant side (principal); Z74.01 Bed confinement status | CPT/HCPCS: A0425; A0428 ==

== ENCOUNTER 2019-06-21 22:23 | Outpatient (CLI) | payer OTHER | END 2019-06-21 23:59 | disposition critical access hospital (66) | LOC: EMS 22:23 | PROVIDERS: ATTEND Surgery | DX: R39.89 Other symptoms and signs involving the genitourinary system (principal) | CPT/HCPCS: A0425; A0429 ==

== ENCOUNTER 2019-06-21 22:48 | Emergency (ER) | payer OTHER ==
--- NOTE | 2019-06-21 23:29 | ED Physician Documentation ---
PD HPI MALE - Stated complaint Stated Complaint: CATH ISSUE - Chief complaint Chief Complaint: UTI - History obtained from History obtained from: Patient, EMS - History of Present Illness Timing - onset: How many days ago (3) Timing - duration: Days (3) Timing - details: Gradual onset, Still present Associated symptoms: Abdominal pain, Indwelling catheter, Mcwilliams problem PD HPI MALE CONTRIB FACTORS: Indwelling catheter Similar symptoms before: Diagnosis (UTI) Recently seen: Not recently seen - Additional information Additional information: 73-year-old male with a history of CVA with left hemiparesis is bedbound and cared for at his home. He has an indwelling suprapubic Mcwilliams catheter for the past 2 months has developed acute pain and drainage around the site of the insertion as well as a purple bag syndrome. He is noted the bag is become purple the tube is become purple and there is urinary sediment. He has been constipated as well.He denies a fever or vomiting.He has been confined to his h ouse for the past 2 months. His most recent visit to the emergency department was in the middle of April and at that time he was seen for urinary tract infection and cellulitis around the site of insertion of the catheter. He is scheduled to have his catheter changed in 4 days. Review of Systems Constitutional: denies: Fever, Chills, Myalgias Eyes: denies: Decreased vision Ears: denies: Ear pain Nose: denies: Rhinorrhea / runny nose, Congestion PD PAST MEDICAL HISTORY - Past Medical History Past Medical History: Yes Cardiovascular: Hypertension, High cholesterol, [place], Atrial fibrillation Neuro: CVA, Peripheral neuropathy Endocrine/Autoimmune: Type 2 diabetes, HyPOthyroidism : Indwelling catheter Musculoskeletal: Hemiplegia - Past Surgical History Past Surgical History: Yes General: Bowel surgery Ortho: Spine surgery Cardiovascular: CABG - Present Medications Home Medications: Ambulatory Orders Medication Instructions Recorded Confirmed Amiodarone [Pacerone] 200 mg PO DAILY 02/20/18 06/21/19 Apixaban [Eliquis] 5 mg PO BID 02/20/18 06/21/19 Fluticasone [Flonase] 2 sprays JUAN C DAILY PRN 02/20/18 06/21/19 Gabapentin 300 mg PO BID 02/20/18 06/21/19 Insulin Glargine [Lantus Solostar] 20 unit SQ QPM 02/20/18 06/21/19 Losartan [Cozaar] 12.5 mg PO DAILY 02/20/18 06/21/19 Docusate Sodium 200 mg PO DAILY PRN 05/05/19 06/21/19 Levothyroxine Sodium 150 mcg PO QDAC 05/05/19 06/21/19 Magnesium Oxide 400 mg PO 1200,1900 05/05/19 06/21/19 Melatonin 5 mg PO QPM 05/05/19 06/21/19 Metoprolol Succinate 50 mg PO BID 05/05/19 06/21/19 Mirtazapine 15 mg PO QPM 05/05/19 06/21/19 Oxybutynin Chloride 5 mg PO BID 05/05/19 06/21/19 Acetaminophen 325 mg PO Q8HR PRN 06/21/19 06/21/19 Atorvastatin [Lipitor] 40 mg PO QPM 06/21/19 06/21/19 Carboxymethylcellulose Sodium 15 ml OP BID PRN 06/21/19 06/21/19 [Artificial Tears] Dextrose [Glucose] 4 gm PO DAILY PRN 06/21/19 06/21/19 Glycerin Adult Supp [Glycerin] 2 gm [place] ONCE PRN 06/21/19 06/21/19 Polyethylene Glycol 3350 17 gm PO DAILY 06/21/19 06/21/19 [Powderlax] Ranitidine HCl [Heartburn Relief] 150 mg PO BID 06/21/19 06/21/19 Tamsulosin HCl [Flomax] 0.8 mg PO QPM 06/21/19 06/21/19 Cefdinir 300 mg PO BID #20 capsule 06/22/19 - Allergies Allergies/Adverse Reactions: Allergies Allergy/AdvReac Type Severity Reaction Status Date / Time codeine Allergy Unknown Verified 05/05/19 14:45 diazepam Allergy Unknown Verified 06/21/19 23:03 meperidine [From Demerol] Allergy Unknown Verified 05/05/19 14:45 simvastatin Allergy Unknown Verified 06/21/19 23:03 acetaminophen [From Vicodin] AdvReac Itching Verified 05/05/19 14:45 hydrocodone [From Vicodin] AdvReac Itching Verified 05/05/19 14:45 - Social History Does the pt smoke?: No Smoking Status: Never smoker Does the pt drink ETOH?: Yes Does the pt have substance abuse?: No - POLST Patient has POLST: No PD ED PE NORMAL - Vitals Vital signs reviewed: Yes (normal ) - General General: Alert and oriented X 3, No acute distress, Well developed/nourished - HEENT HEENT: Atraumatic, PERRL, EOMI - Neck Neck: Supple, no meningeal sign - Cardiac Cardiac: RRR, No murmur - Respiratory Respiratory: No respiratory distress, Clear bilaterally, Other (sternotomy scar is deep and long. ) - Abdomen Abdomen: Normal bowel sounds, Soft, Other (There is specific tenderness to the area around the suprapubic catheter insertion without erythema and there is purulent drainage around the insertion with skin breakdown. The mcwilliams tube is pruple and the bag is purple. There is tenderness to the LLQ as well with a complaint of constipation. ) - Back Back: No CVA TTP, No spinal TTP - Derm Derm: Normal color, Warm and dry, No rash - Extremities Extremities: No deformity, No edema - Neuro Neuro: Alert and oriented X 3, Normal speech, Other (There is a dense left hemiparesis. ) Eye Opening: Spontaneous Motor: Obeys Commands Verbal: Confused GCS Score: 14 - Psych Psych: Normal mood, Normal affect Results - Vitals Vitals: Vital Signs - 24 hr 06/21/19 06/21/19 06/22/19 22:54 23:04 00:10 Temperature 36.6 C Heart Rate 63 62 63 Respiratory 17 17 17 Rate Blood Pressure 122/79 107/59 L 113/72 O2 Saturation 100 100 100 06/22/19 01:37 Temperature Heart Rate 67 Respiratory 17 Rate Blood Pressure 144/74 H O2 Saturation 100 Oxygen O2 Source Room air - Labs Labs: Laboratory Tests 06/21/19 06/21/19 06/21/19 23:30 23:30 23:30 WBC 7.6 RBC 3.87 L Hgb 12.4 L Hct 36.7 L MCV 94.8 H MCH 32.0 H MCHC 33.8 RDW 14.8 Plt Count 169 MPV 9.2 Neut # (Auto) 5.0 Lymph # (Auto) 1.8 [place] # (Auto) 0.5 Eos # (Auto) 0.3 Baso # (Auto) 0.0 Absolute Nucleated RBC 0.00 Nucleated RBC % 0.0 Sodium 137 Potassium 3.5 Chloride 104 Carbon Dioxide 23 Anion Gap 10.0 BUN 20 Creatinine 1.4 H Estimated GFR (MDRD) 50 L Glucose 99 Lactic Acid 0.9 Calcium 8.8 Total Bilirubin 1.0 AST 16 ALT 15 Alkaline Phosphatase 71 Total Protein 6.5 L Albumin 3.3 Globulin 3.2 Albumin/Globulin Ratio 1.0 Lipase 22 Urine Color Urine Clarity Urine pH Ur Specific [place] Urine Protein Urine Glucose (UA) Urine Ketones Urine Occult Blood Urine Nitrite Urine Bilirubin Urine Urobilinogen Ur Leukocyte Esterase Urine RBC Urine WBC Ur Squamous Epith Cells Amorphous Sediment Urine Bacteria Ur Microscopic Review Urine Culture Comments 06/21/19 23:37 WBC RBC Hgb Hct MCV MCH MCHC RDW Plt Count MPV Neut # (Auto) Lymph # (Auto) [place] # (Auto) Eos # (Auto) Baso # (Auto) Absolute Nucleated RBC Nucleated RBC % Sodium Potassium Chloride Carbon Dioxide Anion Gap BUN Creatinine Estimated GFR (MDRD) Glucose Lactic Acid Calcium Total Bilirubin AST ALT Alkaline Phosphatase Total Protein Albumin Globulin Albumin/Globulin Ratio Lipase Urine Color YELLOW Urine Clarity CLOUDY Urine pH 8.5 H Ur Specific [place] 1.015 Urine Protein >=300 H Urine Glucose (UA) NEGATIVE Urine Ketones TRACE Urine Occult Blood LARGE H Urine Nitrite NEGATIVE Urine Bilirubin NEGATIVE Urine Urobilinogen 1 (NORMAL) Ur Leukocyte Esterase LARGE H Urine RBC TNTC H Urine WBC >25 H Ur Squamous Epith Cells NONE SEEN Amorphous Sediment Few Urine Bacteria Many H Ur Microscopic Review INDICATED Urine Culture Comments INDICATED - Rads (name of study) CT ab/pel w Radiology: Prelim report reviewed (In: 1. No evidence of abscess along the suprapubic catheter tract. 2. Thick-walled bladder, which may reflect cystitis. 3. Cholelithiasis without evidence of acute cholecystitis.), EMP read i ndepedently, See rad report PD MEDICAL DECISION MAKING - ED course Complexity details: reviewed old records, reviewed results, re-evaluated patient, considered differential, d/w patient, d/w bi consultant (Dr. Evans urology director of business applications for Dr. Gonzales is consulted in the case and recommends not replacing the catherter as the tract is not likely mature and having the patient follow up at the [facility] as scheduled for catheter replacement. ) ED course: 73-year-old male with a history of hemiparesis and an indwelling Mcwilliams catheter has developed purple bag syndrome with obvious infection of the urine and there is some tenderness around the insertion site as well as pus draining at the insertion site there is no erythema to the wall to suggest cellulitis there is some general tenderness around the area. The patient is afebrile has normal white blood cell count and CT scan of the abdomen pelvis does not demonstrate evidence of an abscess in the area. I have consulted the urologist from [facility] and she is recommended we not attempt to replace this catheter as the tract is likely not mature and she recommends having the patient follow-up as planned in 4 days time for replacement of the catheter at the [facility]. We did try to consult the urologist at the [facility] but they do not have services available after hours. We will treat the infection and the patient also has received some nursing care here for constipation with an enema bringing out a small amount of stool. There was not excessive constipation present on his CT scan. Departure - Departure Disposition: 01 Home, Self Care Clinical Impression: Purple urine bag syndrome UTI (urinary tract infection) Qualifiers: Urinary tract infection type: catheter-associated UTI Indwelling urinary catheter type: cystostomy catheter Encounter type: initial encounter Qualified Code(s): T83.510A - Infection and inflammatory reaction due to cystostomy catheter, initial encounter Constipation Qualifiers: Constipation type: unspecified constipation type Qualified Code(s): K59.00 - Constipation, unspecified Instructions: ED Constipation, ED UTI Cystitis Male Follow-Up: Your, doctor at the [facility] in [place] as planned June 24 [Other] Prescriptions: Cefdinir 300 mg PO BID #20 capsule
[2019-06-21 23:46] LABS: BASOPHILS % (AUTO) 0.5 %; EOSINOPHILS # (AUTO) 0.3 10^3/uL (0.0-0.7); EOSINOPHILS % (AUTO) 3.4 %; HGB - HEMOGLOBIN 12.4 g/dL (14.0-18.0); LYMPHOCYTES # (AUTO) 1.8 10^3/uL (1.5-3.5); LYMPHOCYTES % (AUTO) 23.1 %; MEAN CORPUSCULAR HGB CONC 33.8 g/dL (32.0-36.0); MEAN CORPUSCULAR VOLUME 94.8 fL (80.0-94.0); MEAN PLATELET VOLUME 9.2 fL (7.4-11.4); MONOCYTES # (AUTO) 0.5 10^3/uL (0.0-1.0); MONOCYTES % (AUTO) 6.3 %; NEUTROPHILS % (AUTO) 66.2 %; PLT - PLATELET COUNT 169 10^3/uL (130-450); RED BLOOD COUNT 3.87 10^6/uL (4.70-6.10); RED CELL DISTRIBUTION WIDTH 14.8 % (12.0-15.0); WHITE BLOOD COUNT 7.6 x10^3/uL (4.8-10.8)
[2019-06-21 23:50] LABS: BILIRUBIN,URINE NEGATIVE (NEGATIVE); GLUCOSE, URINE (UA) NEGATIVE (NEGATIVE); KETONES,URINE (UA) TRACE mg/dL (NEGATIVE); LEUKOCYTE ESTERASE, URINE LARGE (NEGATIVE); NITRITE,URINE NEGATIVE (NEGATIVE); OCCULT BLOOD,URINE LARGE (NEGATIVE); PH,URINE 8.5 PH (5.0-7.5); PROTEIN,URINE >=300 mg/dL (NEGATIVE); UROBILINOGEN,URINE 1 (NORMAL) E.U./dL (NORMAL)
[2019-06-21] MEDS ORDERED: IOVERSOL 320 100 ML VIAL IVP ONE (23:51)
[2019-06-21 23:54] LABS: CLARITY,URINE CLOUDY (CLEAR)
[2019-06-21 23:59] LABS: ALBUMIN 3.3 g/dL (3.2-5.5); CALCIUM 8.8 mg/dL (8.5-10.3); CREATININE 1.4 mg/dL (0.6-1.2); TOTAL PROTEIN 6.5 g/dL (6.7-8.2)
[2019-06-22 00:02] LABS: AMORPHOUS SEDIMENT,UR Few /LPF; BACTERIA,URINE Many /HPF (None Seen); RBC,URINE TNTC /HPF (0-5); SQUAMOUS EPITHELIAL CELL,UR NONE SEEN (<= Few)
[2019-06-22] MEDS ORDERED: cefTRIAXone 1 GM in SODIUM CHLORIDE 0.9% MINIBAG 100 ML IV STA (00:08)
[2019-06-22] MEDS ORDERED: IOVERSOL 320 100 ML VIAL IVP ONE (00:33)
--- NOTE | 2019-06-22 01:09 | CT Report ---
Reason: RLQ pain pus from suprapubic cath. Procedure Date: 06/22/2019 Accession Number: [id number] / [id number] Procedure: CT - Abdomen/Pelvis W CPT Code: Final Report FULL RESULT: EXAM: CT ABDOMEN AND PELVIS EXAM DATE: 06/22/2019 12:26 AM. CLINICAL HISTORY: Purulent drainage from suprapubic catheter. COMPARISONS: ABDOMEN/PELVIS W/ 11/19/2014 9:48 AM. TECHNIQUE: Routine helical CT imaging was performed through the abdomen and pelvis. IV contrast: OPTIRAY 320. Enteric contrast: No. Reconstructions: Coronal and sagittal. In accordance with CT protocol optimization, one or more of the following dose reduction techniques were utilized for this exam: automated exposure control, adjustment of mA and/or KV based on patient size, or use of iterative reconstructive technique. FINDINGS: Areas of nodular pleural thickening have developed along the anterolateral aspect of the inferior right upper lobe. Dependent atelectasis is seen in both lung bases. Atherosclerotic plaque calcifications are seen in the coronary arteries. Sternotomy wires are partially imaged. The heart size is within normal limits. There is no pericardial effusion. Linear calcifications along the anterior liver surface are unchanged. There is no focal intrahepatic mass. Postsurgical changes from a right lateral hepatectomy are seen. Small calcified gallstones are present. The gallbladder is not distended. There is no gallbladder wall thickening or pericholecystic fluid. No biliary dilatation is seen. The spleen and pancreas are within normal limits. The adrenal glands are normal. Bilateral renal cysts are unchanged the largest is located at the superior pole of the left kidney and measures 2.8 cm. No renal mass or hydronephrosis is present. Surgical clips are seen adjacent to the cecum consistent with an appendectomy. Stool is seen throughout the colon. The intestines are normal in caliber and position. There is no evidence of bowel inflammation or obstruction. No free intraperitoneal air or ascites is present. There is no lymphadenopathy. Atherosclerotic plaque calcifications are seen in the aorta and its branches. The abdominal aorta is normal in caliber. A suprapubic catheter terminates in the thick-walled collapsed bladder. Air in the bladder is likely iatrogenic. No fluid collection is seen with along the tract of the catheter. There is mild surrounding soft tissue edema. The prostate gland is enlarged measuring 5.2 cm. There is no free pelvic fluid. Degenerative changes are seen in the thoracolumbar spine and sacroiliac joints. No suspicious lytic or blastic lesions are seen. IMPRESSION: 1. No evidence of abscess along the suprapubic catheter tract. 2. Thick-walled bladder, which may reflect cystitis. 3. Cholelithiasis without evidence of acute cholecystitis. RADIA
[2019-06-22 01:37] VITALS: BP 144/74
== END 2019-06-22 02:16 | disposition home or self-care (01) ==
LOC: EDUNIT# → ED 22:48
DX: N39.8 Other specified disorders of urinary system (principal); T83.510A Infection and inflammatory reaction due to cystostomy catheter, initial encounter; N39.0 Urinary tract infection, site not specified; K59.00 Constipation, unspecified; I10 Essential (primary) hypertension; E11.42 Type 2 diabetes mellitus with diabetic polyneuropathy; Z79.4 Long term (current) use of insulin
CPT/HCPCS: 36415; 74177; 80053; 81001; 83605; 83690; 85025; 87040; 87086; 96365; 99284; Q9967; 81003

== ENCOUNTER 2019-06-22 02:18 | Outpatient (CLI) | payer OTHER | END 2019-06-22 02:19 | disposition home or self-care (01) | LOC: EMS 02:18 | PROVIDERS: ATTEND Surgery | DX: G81.94 Hemiplegia, unspecified affecting left nondominant side (principal); Z74.01 Bed confinement status | CPT/HCPCS: A0425; A0428 ==

== ENCOUNTER 2019-11-01 10:09 | Outpatient (CLI) | payer OTHER | END 2019-11-01 10:10 | disposition critical access hospital (66) | LOC: EMS 10:09 | PROVIDERS: ATTEND Surgery | DX: T83.098A Other mechanical complication of other urinary catheter, initial encounter (principal) | CPT/HCPCS: A0425; A0429 ==

== ENCOUNTER 2019-11-01 10:39 | Emergency (ER) | payer OTHER ==
--- NOTE | 2019-11-01 10:52 | ED Physician Documentation ---
PD HPI MALE - Stated complaint Stated Complaint: CATH CLOGGED - Chief complaint Chief Complaint: General - History obtained from History obtained from: Patient - History of Present Illness Timing - onset: Today Timing - details: Gradual onset (had lower flow from suprapubic cath for few days and then not flowing at all this morning. Full bladder feeling. Current catheter has been in for a month, typically they get changed at a month.) Associated symptoms: [place] problem (suprapubic cath) PD HPI MALE CONTRIB FACTORS: Indwelling catheter Review of Systems Constitutional: denies: Fever, Chills GI: denies: Abdominal Pain Musculoskeletal: denies: Back pain PD PAST MEDICAL HISTORY - Past Medical History Cardiovascular: Hypertension, High cholesterol, [place], Atrial fibrillation Neuro: CVA, Peripheral neuropathy Endocrine/Autoimmune: Type 2 diabetes, HyPOthyroidism : Indwelling catheter Musculoskeletal: Hemiplegia - Past Surgical History Past Surgical History: Yes General: Bowel surgery Ortho: Spine surgery Cardiovascular: CABG - Present Medications Home Medications: Ambulatory Orders Medication Instructions Recorded Confirmed Amiodarone [Pacerone] 200 mg PO DAILY 02/20/18 06/21/19 Apixaban [Eliquis] 5 mg PO BID 02/20/18 06/21/19 Fluticasone [Flonase] 2 sprays JUAN C DAILY PRN 02/20/18 06/21/19 Gabapentin 300 mg PO BID 02/20/18 06/21/19 Insulin Glargine [Lantus Solostar] 20 unit SQ QPM 02/20/18 06/21/19 Losartan [Cozaar] 12.5 mg PO DAILY 02/20/18 06/21/19 Docusate Sodium 200 mg PO DAILY PRN 05/05/19 06/21/19 Levothyroxine Sodium 150 mcg PO QDAC 05/05/19 06/21/19 Magnesium Oxide 400 mg PO 1200,1900 05/05/19 06/21/19 Melatonin 5 mg PO QPM 05/05/19 06/21/19 Metoprolol Succinate 50 mg PO BID 05/05/19 06/21/19 Mirtazapine 15 mg PO QPM 05/05/19 06/21/19 Oxybutynin Chloride 5 mg PO BID 05/05/19 06/21/19 Acetaminophen 325 mg PO Q8HR PRN 06/21/19 06/21/19 Atorvastatin [Lipitor] 40 mg PO QPM 06/21/19 06/21/19 Carboxymethylcellulose Sodium 15 ml OP BID PRN 06/21/19 06/21/19 [Artificial Tears] Dextrose [Glucose] 4 gm PO DAILY PRN 06/21/19 06/21/19 Glycerin Adult Supp [Glycerin] 2 gm AR ONCE PRN 06/21/19 06/21/19 Polyethylene Glycol 3350 17 gm PO DAILY 06/21/19 06/21/19 [Powderlax] Tamsulosin HCl [Flomax] 0.8 mg PO QPM 06/21/19 06/21/19 raNITIdine HCL [Heartburn Relief] 150 mg PO BID 06/21/19 06/21/19 Cefdinir 300 mg PO BID #20 capsule 06/22/19 - Allergies Allergies/Adverse Reactions: Allergies Allergy/AdvReac Type Severity Reaction Status Date / Time codeine Allergy Unknown Verified 05/05/19 14:45 diazepam Allergy Unknown Verified 06/21/19 23:03 meperidine [From Demerol] Allergy Unknown Verified 05/05/19 14:45 simvastatin Allergy Unknown Verified 06/21/19 23:03 acetaminophen [From Vicodin] AdvReac Itching Verified 05/05/19 14:45 hydrocodone [From Vicodin] AdvReac Itching Verified 05/05/19 14:45 - Social History Does the pt smoke?: No Smoking Status: Never smoker Does the pt drink ETOH?: Yes Does the pt have substance abuse?: No - POLST Patient has POLST: No PD ED PE NORMAL - Vitals Vital signs reviewed: Yes - General General: Alert and oriented X 3, No acute distress, Well developed/nourished - Cardiac Cardiac: RRR, No murmur - Respiratory Respiratory: Clear bilaterally - Abdomen Abdomen: Normal bowel sounds, Soft, Non distended, No organomegaly, Other (suprapubic catheter in place, not draining. fullness in bladder area. ) Results - Vitals Vitals: Oxygen O2 Source Room air - Labs Labs: Microbiology 11/01/19 12:00 Urine Culture - Preliminary Urine,Catheterized Laboratory Tests 11/01/19 12:00 Urine Color YELLOW Urine Clarity CLOUDY Urine pH 8.0 H Ur Specific [place] 1.010 Urine Protein 30 H Urine Glucose (UA) NEGATIVE Urine Ketones NEGATIVE Urine Occult Blood LARGE H Urine Nitrite POSITIVE H Urine Bilirubin NEGATIVE Urine Urobilinogen 0.2 (NORMAL) Ur Leukocyte Esterase LARGE H Urine RBC TNTC H Urine WBC >25 H Urine WBC Clumps PRESENT Ur Squamous Epith Cells NONE SEEN Urine Bacteria Many H Ur Microscopic Review INDICATED Urine Culture Comments INDICATED PD MEDICAL DECISION MAKING - ED course Complexity details: considered differential (clogged catheter and has been there a month, so will exchange it rather than just trying to irrigate it. ), d/w patient Departure - Departure Disposition: 01 Home, Self Care Clinical Impression: Suprapubic catheter dysfunction Qualifiers: Encounter type: initial encounter Qualified Code(s): T83.010A - Breakdown (mechanical) of cystostomy catheter, initial encounter Condition: Stable Record reviewed to determine appropriate education?: Yes Follow-Up: Sammie Rush ARNP [Primary Care Provider] - Comments: Continue with her usual catheter care. We will see if any results come from the urine culture and decide if they need acting upon. Most commonly these clogged up from just sediment buildup. Discharge Date/Time: 11/01/19 13:49
[2019-11-01 12:19] LABS: BILIRUBIN,URINE NEGATIVE (NEGATIVE); GLUCOSE, URINE (UA) NEGATIVE (NEGATIVE); KETONES,URINE (UA) NEGATIVE (NEGATIVE); LEUKOCYTE ESTERASE, URINE LARGE (NEGATIVE); NITRITE,URINE POSITIVE (NEGATIVE); OCCULT BLOOD,URINE LARGE (NEGATIVE); PROTEIN,URINE 30 mg/dL (NEGATIVE); UROBILINOGEN,URINE 0.2 (NORMAL) E.U./dL (NORMAL)
[2019-11-01 12:22] LABS: CLARITY,URINE CLOUDY (CLEAR)
[2019-11-01 12:29] LABS: BACTERIA,URINE Many /HPF (None Seen); RBC,URINE TNTC /HPF (0-5); SQUAMOUS EPITHELIAL CELL,UR NONE SEEN (<= Few); WBC CLUMPS,URINE PRESENT
[2019-11-01 13:49] VITALS: BP 138/77
== END 2019-11-01 13:49 | disposition home or self-care (01) ==
LOC: EDUNIT# → ED 10:39
DX: T83.010A Breakdown (mechanical) of cystostomy catheter, initial encounter (principal); I10 Essential (primary) hypertension; E11.42 Type 2 diabetes mellitus with diabetic polyneuropathy; Z79.4 Long term (current) use of insulin
CPT/HCPCS: 81001; 81003; 87077; 87086; 87181; 99283

== ENCOUNTER 2019-11-01 13:51 | Outpatient (CLI) | payer OTHER | END 2019-11-01 13:52 | disposition home or self-care (01) | LOC: EMS 13:51 | PROVIDERS: ATTEND Surgery | DX: T83.098A Other mechanical complication of other urinary catheter, initial encounter (principal); Z74.01 Bed confinement status | CPT/HCPCS: A0425; A0428 ==

== ENCOUNTER 2019-11-27 12:31 | Outpatient (CLI) | payer OTHER | END 2019-11-27 12:32 | disposition critical access hospital (66) | LOC: EMS 12:31 | PROVIDERS: ATTEND Surgery | DX: T83.84XA Pain due to genitourinary prosthetic devices, implants and grafts, initial encounter (principal); R53.1 Weakness | CPT/HCPCS: A0425; A0429 ==

== ENCOUNTER 2019-11-27 13:16 | Emergency (ER) | payer OTHER ==
--- NOTE | 2019-11-27 13:21 | ED Physician Documentation ---
PD HPI MALE - Stated complaint Stated Complaint: MALE - History obtained from History obtained from: Patient - History of Present Illness Timing - onset: Today, Last night Timing - duration: Days (1/2) Timing - details: Abrupt onset (pt states suprapubic cath stopped draining last night and he had some urine out through penis/incontinent, and had burning dysuria with it. Noted output of cath has been cloudy for few days. [place] feverish last night too.) Associated symptoms: Dysuria, Indwelling catheter (suprapubic with stoppage of it draining last night.) PD HPI MALE CONTRIB FACTORS: Indwelling catheter Similar symptoms before: Diagnosis (clogged with sediment in the past and gets it changed every 3 weeks, usually effective. Has had infections with similar effect as well.) Recently seen: Clinic (states last cath change was at [facility] 2 weeks ago.) Review of Systems Constitutional: reports: Fever (subjective) Nose: denies: Congestion Cardiac: denies: Chest pain / pressure Respiratory: denies: Cough GI: denies: Vomiting, Diarrhea Musculoskeletal: denies: Back pain PD PAST MEDICAL HISTORY - Past Medical History Cardiovascular: Hypertension, [place] cholesterol, [place], Atrial fibrillation Respiratory: None Neuro: CVA, Peripheral neuropathy Endocrine/Autoimmune: Type 2 diabetes, HyPOthyroidism GI: None : Indwelling catheter HEENT: None Musculoskeletal: Hemiplegia Derm: None - Past Surgical History Past Surgical History: Yes General: Bowel surgery Ortho: Spine surgery Cardiovascular: CABG - Present Medications Home Medications: Ambulatory Orders Medication Instructions Recorded Confirmed Amiodarone [Pacerone] 200 mg PO DAILY 02/20/18 06/21/19 Apixaban [Eliquis] 5 mg PO BID 02/20/18 06/21/19 Fluticasone [Flonase] 2 sprays JUAN C DAILY PRN 02/20/18 06/21/19 Gabapentin 300 mg PO BID 02/20/18 06/21/19 Insulin Glargine [Lantus Solostar] 20 unit SQ QPM 02/20/18 06/21/19 Losartan [Cozaar] 12.5 mg PO DAILY 02/20/18 06/21/19 Docusate Sodium 200 mg PO DAILY PRN 05/05/19 06/21/19 Levothyroxine Sodium 150 mcg PO QDAC 05/05/19 06/21/19 Magnesium Oxide 400 mg PO 1200,1900 05/05/19 06/21/19 Melatonin 5 mg PO QPM 05/05/19 06/21/19 Metoprolol Succinate 50 mg PO BID 05/05/19 06/21/19 Mirtazapine 15 mg PO QPM 05/05/19 06/21/19 Oxybutynin Chloride 5 mg PO BID 05/05/19 06/21/19 Acetaminophen 325 mg PO Q8HR PRN 06/21/19 06/21/19 Atorvastatin [Lipitor] 40 mg PO QPM 06/21/19 06/21/19 Carboxymethylcellulose Sodium 15 ml OP BID PRN 06/21/19 06/21/19 [Artificial Tears] Dextrose [Glucose] 4 gm PO DAILY PRN 06/21/19 06/21/19 Glycerin Adult Supp [Glycerin] 2 gm IN ONCE PRN 06/21/19 06/21/19 Polyethylene Glycol 3350 17 gm PO DAILY 06/21/19 06/21/19 [Powderlax] Tamsulosin HCl [Flomax] 0.8 mg PO QPM 06/21/19 06/21/19 raNITIdine HCL [Heartburn Relief] 150 mg PO BID 06/21/19 06/21/19 Cefdinir 300 mg PO BID #20 capsule 06/22/19 Cephalexin [Keflex] 500 mg PO TID #20 capsule 11/27/19 - Allergies Allergies/Adverse Reactions: Allergies Allergy/AdvReac Type Severity Reaction Status Date / Time codeine Allergy Unknown Verified 11/27/19 13:23 diazepam Allergy Unknown Verified 11/27/19 13:23 meperidine [From Demerol] Allergy Unknown Verified 11/27/19 13:23 simvastatin Allergy Unknown Verified 11/27/19 13:23 acetaminophen [From Vicodin] AdvReac Itching Verified 11/27/19 13:23 hydrocodone [From Vicodin] AdvReac Itching Verified 11/27/19 13:23 - Social History Does the pt smoke?: No Smoking Status: Never smoker Does the pt drink ETOH?: Yes Does the pt have substance abuse?: No - POLST Patient has POLST: No PD ED PE NORMAL - Vitals Vital signs reviewed: Yes - General General: Alert and oriented X 3, No acute distress, Well developed/nourished - Neck Neck: Supple, no meningeal sign, No adenopathy - Cardiac Cardiac: RRR, No murmur - Respiratory Respiratory: Clear bilaterally - Abdomen Abdomen: Soft, Non tender, Non distended, Other (suprpubic catheter site without signs of infection. Catheter without noted current drainage. The urine in bag is cloudy, turbid, with lot of sedmient/WBC clumps appearance. ). No: Normal bowel sounds (decreased) - Back Back: No CVA TTP - Derm Derm: Normal color, Warm and dry - Extremities Extremities: No edema, No calf tenderness / cord Results - Vitals Vitals: Vital Signs - 24 hr 11/27/19 11/27/19 11/27/19 13:23 14:38 16:51 Temperature 36.5 C 36.4 C L 36.3 C L Heart Rate 57 L 59 L 62 Respiratory 18 14 18 Rate Blood Pressure 130/78 108/52 L 127/64 O2 Saturation 100 99 97 Oxygen O2 Source Room air - Labs Labs: Laboratory Tests 11/27/19 16:20 Urine Color YELLOW Urine Clarity CLOUDY Urine pH 7.0 Ur Specific [place] 1.020 Urine Protein 100 H Urine Glucose (UA) NEGATIVE Urine Ketones NEGATIVE Urine Occult Blood LARGE H Urine Nitrite NEGATIVE Urine Bilirubin NEGATIVE Urine Urobilinogen 1 (NORMAL) Ur Leukocyte Esterase LARGE H Urine RBC 6-10 H Urine WBC >25 H Ur Squamous Epith Cells NONE SEEN Urine Bacteria None Seen Ur Microscopic Review INDICATED Urine Culture Comments INDICATED PD MEDICAL DECISION MAKING - ED course Complexity details: re-evaluated patient (catheter changed by nursing. Then urine sample obtained from new. ), considered differential (thick/cloudy urine with chronic suprapubic. Concern for infection since he reports fever earlier today and had some dysuria when urine came out penis instead. Can Rx Keflex pending culture. Most recent infection grew bacteria sensitive to cephalosporins. ), d/w patient Departure - Departure Disposition: 01 Home, Self Care Clinical Impression: Suprapubic catheter dysfunction Qualifiers: Encounter type: initial encounter Qualified Code(s): T83.010A - Breakdown (mechanical) of cystostomy catheter, initial encounter Condition: Stable Record reviewed to determine appropriate education?: Yes Prescriptions: Cephalexin [Keflex] 500 mg PO TID #20 capsule Comments: Your urine is cloudy and suggestive of an infection but the culture will result not for a couple of days. Meanwhile we can start cephalexin antibiotic as directed for possible infection pending the culture result. Continue usual catheter care. [facility] Return if worsening symptoms. Discharge Date/Time: 11/27/19 18:26
[2019-11-27] MEDS ORDERED: cefTRIAXone 1 GM VIAL IM STA (15:05)
[2019-11-27] MEDS ORDERED: LIDOCAINE 1% 2 ML VIAL MC ONE (15:05)
[2019-11-27 16:51] LABS: BILIRUBIN,URINE NEGATIVE (NEGATIVE); GLUCOSE, URINE (UA) NEGATIVE (NEGATIVE); KETONES,URINE (UA) NEGATIVE (NEGATIVE); LEUKOCYTE ESTERASE, URINE LARGE (NEGATIVE); NITRITE,URINE NEGATIVE (NEGATIVE); OCCULT BLOOD,URINE LARGE (NEGATIVE); PROTEIN,URINE 100 mg/dL (NEGATIVE); UROBILINOGEN,URINE 1 (NORMAL) E.U./dL (NORMAL)
[2019-11-27 16:52] LABS: CLARITY,URINE CLOUDY (CLEAR)
[2019-11-27 16:54] VITALS: BP 127/64
[2019-11-27 17:01] LABS: BACTERIA,URINE None Seen /HPF (None Seen); SQUAMOUS EPITHELIAL CELL,UR NONE SEEN (<= Few)
--- NOTE | 2019-11-29 14:40 | ED Physician Documentation ---
ED Addendum - Addendum Addendum: 11/29/19 14:38 Culture came back today resulting in growth of Proteus mirabilis. He does have a chronic suprapubic catheter but had been having cloudy your urine and did have some dysuria when urinated some as the catheter was clogged. As such she does have some symptoms and therefore a urine culture was obtained. He had been discharged on Keflex as this had been appropriate for his prior infections. However the Keflex would not cover the current infection. Is sensitive to tob ramycin and gentamicin. The patient does receive home health nursing regularly. We will try contacting Ms. Barger who is his primary care at the [facility]. My goal would be to see if we would able to get him IM doses of gentamicin for 3 days or perhaps 3 doses every other day or similar. This should be reasonable treatment initially. The culture nurse today is trying to contact them. If were unable to contact through his primary, we may need to contact him directly for coming back to the ER for initial medications.
== END 2019-11-27 18:26 | disposition home or self-care (01) ==
LOC: EDUNIT# → ED 13:16
DX: T83.010A Breakdown (mechanical) of cystostomy catheter, initial encounter (principal); I69.959 Hemiplegia and hemiparesis following unspecified cerebrovascular disease affecting unspecified side; I10 Essential (primary) hypertension; I25.2 Old myocardial infarction; I48.91 Unspecified atrial fibrillation; E11.9 Type 2 diabetes mellitus without complications; E03.9 Hypothyroidism, unspecified; Z79.4 Long term (current) use of insulin
CPT/HCPCS: 51702; 81001; 81003; 87077; 87086; 87181; 99284

== ENCOUNTER 2019-11-27 18:32 | Outpatient (CLI) | payer OTHER | END 2019-11-27 18:33 | disposition home or self-care (01) | LOC: EMS 18:32 | PROVIDERS: ATTEND Surgery | DX: T83.098A Other mechanical complication of other urinary catheter, initial encounter (principal); N39.0 Urinary tract infection, site not specified; Z74.01 Bed confinement status | CPT/HCPCS: A0425; A0428 ==

== ENCOUNTER 2019-11-29 17:51 | Outpatient (CLI) | payer OTHER | END 2019-11-29 17:52 | disposition critical access hospital (66) | LOC: EMS 17:51 | PROVIDERS: ATTEND Surgery | DX: N39.0 Urinary tract infection, site not specified (principal); I69.354 Hemiplegia and hemiparesis following cerebral infarction affecting left non-dominant side | CPT/HCPCS: A0425; A0429 ==

== ENCOUNTER 2019-11-29 18:23 | Emergency (ER) | payer OTHER ==
[2019-11-29] MEDS ORDERED: SODIUM CHLORIDE 0.9% 1,000 ML IV STA (18:29)
[2019-11-29] MEDS ORDERED: SODIUM CHLORIDE 0.9% IV STA (18:51)
[2019-11-29] MEDS ORDERED: GENTAMICIN IV STA (18:51)
[2019-11-29 18:55] LABS: BASOPHILS % (AUTO) 0.6 %; EOSINOPHILS % (AUTO) 4.3 %; HGB - HEMOGLOBIN 13.1 g/dL (14.0-18.0); LYMPHOCYTES % (AUTO) 18.8 %; MEAN CORPUSCULAR HEMOGLOBIN 31.6 pg (27.0-31.0); MEAN CORPUSCULAR HGB CONC 33.6 g/dL (32.0-36.0); MEAN PLATELET VOLUME 9.6 fL (7.4-11.4); MONOCYTES % (AUTO) 6.2 %; NEUTROPHILS % (AUTO) 69.7 %; PLT - PLATELET COUNT 145 10^3/uL (130-450); RED BLOOD COUNT 4.15 10^6/uL (4.70-6.10); RED CELL DISTRIBUTION WIDTH 14.4 % (12.0-15.0); WHITE BLOOD COUNT 6.8 x10^3/uL (4.8-10.8)
[2019-11-29 18:57] LABS: ABNORMAL LYMPHS % (MANUAL) 0 %; ALBUMIN 3.4 g/dL (3.2-5.5); ALBUMIN/GLOBULIN RATIO 1.2 (1.0-2.2); BAND NEUTROPHILS % (MANUAL) 0 %; BILIRUBIN,TOTAL 0.7 mg/dL (0.2-1.0); CALCIUM 8.9 mg/dL (8.5-10.3); CREATININE 1.5 mg/dL (0.6-1.2); TOTAL PROTEIN 6.3 g/dL (6.7-8.2)
--- NOTE | 2019-11-29 19:04 | ED Physician Documentation ---
History of Present Illness - Stated complaint Stated Complaint: IV ANTIBIOTICS - Chief complaint Chief Complaint: General - Additonal information Additional information: 74-year-old male presents to the emergency department to receive gentamicin. He was seen in the ER 2 days ago during which time he had a malfunctioning suprapubic catheter. The suprapubic catheter was replaced but ultimately urine culture grew Proteus Mirabella's. It is sensitive only to gentamicin and tobramycin. We did attempt to schedule IV or IM [facility]in [facility] however the [facility] reported [facility] to us that they would not be able to make those arrangements until Tuesday at least. Therefore patient presents to the ER today for his first dose. Since being seen in the ED 2 days ago patient reports that he feels like a new man. Reports that the suprapubic catheter is draining adequately. He has had no fevers. He denies chest pain or shortness of breath. This gentleman is chronically debilitated and bedbound. He is cared for by his son and family at home, however he reports to me that he spoke with his primary care provider today about going into a long-term care facility as his care needs are more than his family can help with Review of Systems Constitutional: denies: Fever, Chills Nose: denies: Rhinorrhea / runny nose, Congestion Throat: denies: Dental pain / toothache Cardiac: denies: Chest pain / pressure, Palpitations, Pedal edema, Calf pain Respiratory: denies: Dyspnea, Cough, Hemoptysis, Wheezing GI: reports: Constipation. denies: Abdominal Pain, Nausea, Vomiting, Diarrhea, Hematemesis : reports: Unable to Void, Other (suprapubic catheter). denies: Dysuria, Frequency, Hesitancy Musculoskeletal: denies: Neck pain, Back pain, Extremity pain Neurologic: reports: Generalized weakness. denies: Focal weakness, Syncope, Headache PD PAST MEDICAL HISTORY - Past Medical History Past Medical History: Yes Cardiovascular: Hypertension, High cholesterol, [place], Atrial fibrillation Respiratory: None Neuro: CVA, Peripheral neuropathy Endocrine/Autoimmune: Type 2 diabetes, HyPOthyroidism GI: None : Indwelling catheter HEENT: None Musculoskeletal: Hemiplegia Derm: None - Past Surgical History Past Surgical History: Yes General: Bowel surgery Ortho: Spine surgery Cardiovascular: CABG - Present Medications Home Medications: Ambulatory Orders Medication Instructions Recorded Confirmed Amiodarone [Pacerone] 200 mg PO DAILY 02/20/18 06/21/19 Apixaban [Eliquis] 5 mg PO BID 02/20/18 06/21/19 Fluticasone [Flonase] 2 sprays JUAN C DAILY PRN 02/20/18 06/21/19 Gabapentin 300 mg PO BID 02/20/18 06/21/19 Insulin Glargine [Lantus Solostar] 20 unit SQ QPM 02/20/18 06/21/19 Losartan [Cozaar] 12.5 mg PO DAILY 02/20/18 06/21/19 Docusate Sodium 200 mg PO DAILY PRN 05/05/19 06/21/19 Levothyroxine Sodium 150 mcg PO QDAC 05/05/19 06/21/19 Magnesium Oxide 400 mg PO 1200,1900 05/05/19 06/21/19 Melatonin 5 mg PO QPM 05/05/19 06/21/19 Metoprolol Succinate 50 mg PO BID 05/05/19 06/21/19 Mirtazapine 15 mg PO QPM 05/05/19 06/21/19 Oxybutynin Chloride 5 mg PO BID 05/05/19 06/21/19 Acetaminophen 325 mg PO Q8HR PRN 06/21/19 06/21/19 Atorvastatin [Lipitor] 40 mg PO QPM 06/21/19 06/21/19 Carboxymethylcellulose Sodium 15 ml OP BID PRN 06/21/19 06/21/19 [Artificial Tears] Dextrose [Glucose] 4 gm PO DAILY PRN 06/21/19 06/21/19 Glycerin Adult Supp [Glycerin] 2 gm TN ONCE PRN 06/21/19 06/21/19 Polyethylene Glycol 3350 17 gm PO DAILY 06/21/19 06/21/19 [Powderlax] Tamsulosin HCl [Flomax] 0.8 mg PO QPM 06/21/19 06/21/19 raNITIdine HCL [Heartburn Relief] 150 mg PO BID 06/21/19 06/21/19 Cefdinir 300 mg PO BID #20 capsule 06/22/19 Cephalexin [Keflex] 500 mg PO TID #20 capsule 11/27/19 - Allergies Allergies/Adverse Reactions: Allergies Allergy/AdvReac Type Severity Reaction Status Date / Time codeine Allergy Unknown Verified 11/29/19 18:37 diazepam Allergy Unknown Verified 11/29/19 18:37 meperidine [From Demerol] Allergy Unknown Verified 11/29/19 18:37 simvastatin Allergy Unknown Verified 11/29/19 18:37 acetaminophen [From Vicodin] AdvReac Itching Verified 11/29/19 18:37 hydrocodone [From Vicodin] AdvReac Itching Verified 11/29/19 18:37 - Social History Does the pt smoke?: No Smoking Status: Never smoker Does the pt drink ETOH?: Yes Does the pt have substance abuse?: No - POLST Patient has POLST: No PD ED PE EXPANDED - General General: Alert, No acute distress, Other (chronically bed bound) - HEENT HEENT: Atraumatic, PERRL - Cardiac Cardiac: Regular Rate, Radial strong equal, Femoral strong equal, Pedal strong equal, Cap refill < 2 sec - Respiratory Respiratory: Clear to ausultation lonny. No: Distress, Labored - Abdomen Abdomen: Normal Bowel sounds, Tender to palpation (mild left ttp), Suprapubic (spurapubic catheter; site dry and intact; draining yellow urine) - Neuro Neuro: Alert and Oriented X 3, CNII-XII intact - GCS Eye Opening: Spontaneous Motor: Obeys Commands Verbal: Oriented Total: 15 Results - Vitals Vitals: Vital Signs - 24 hr 11/29/19 11/29/19 11/29/19 18:23 19:23 19:45 Temperature 36 C L 36.0 C L Heart Rate 60 55 L Respiratory 18 17 17 Rate Blood Pressure 124/78 132/70 H O2 Saturation 98 100 Oxygen O2 Source Room air - Labs Labs: Laboratory Tests 11/29/19 11/29/19 18:35 18:35 WBC 6.8 RBC 4.15 L Hgb 13.1 L Hct 39.0 L MCV 94.0 MCH 31.6 H MCHC 33.6 RDW 14.4 Plt Count 145 MPV 9.6 Neut # (Auto) Not Reportable Lymph # (Auto) Not Reportable [place] # (Auto) Not Reportable Eos # (Auto) Not Reportable Baso # (Auto) Not Reportable Absolute Nucleated RBC Not Reportable Total Counted 100 Band Neuts % (Manual) 0 Abnorm Lymph % (Manual) 0 Nucleated RBC % Not Reportable Neutrophils # (Manual) 5.1 Lymphocytes # (Manual) 1.1 L Monocytes # (Manual) 0.5 Eosinophils # (Manual) 0.1 Basophils # (Manual) 0.0 Differential Comment MANUAL DIFFERENTIAL Manual Slide Review Indicated WBC Morphology NORMAL APPEARANCE Platelet Estimate NORMAL (130-450,000) Platelet Morphology NORMAL APPEARANCE RBC Morph Micro Appear NORMAL APPEARANCE Sodium 138 Potassium 3.9 Chloride 104 Carbon Dioxide 24 Anion Gap 10.0 BUN 33 H Creatinine 1.5 H Estimated GFR (MDRD) 46 L Glucose 178 H Calcium 8.9 Total Bilirubin 0.7 AST 16 ALT 21 Alkaline Phosphatase 70 Total Protein 6.3 L Albumin 3.4 Globulin 2.9 Albumin/Globulin Ratio 1.2 Lipase 23 PD MEDICAL DECISION MAKING - ED course Complexity details: reviewed old records, reviewed results, d/w patient ED course: 74-year-old male presents the emergency department to receive gentamicin for recent Proteus Mirabella's infection from his suprapubic catheter. [facility] but this cannot be done until the at the earliest. - Shunt was given 5 mg/kg of gentamicin here in the emergency department. Based on conventional dosing and his creatinine clearance he should receive additional dosing every 48 hours for a total of 3 doses. Following that he should see his urologist or primary care doctor to discuss having the suprapubic catheter replaced. Unfortunately patient will need to return to the emergency department in 2 days to have a repeat of the gentamicin completed. Departure - Departure Disposition: 01 Home, Self Care Clinical Impression: UTI (urinary tract infection) due to urinary indwelling catheter Qualifiers: Indwelling urinary catheter type: unspecified Encounter type: subsequent encounter Qualified Code(s): T83.511D - Infection and inflammatory reaction due to indwelling urethral catheter, subsequent encounter; N39.0 - Urinary tract infection, site not specified Condition: Stable Record reviewed to determine appropriate education?: Yes Comments: Gabriel we did give you your first dose of gentamicin today. Based on your kidney function you will need to return in 48 hours to have the second dose done. A total of 3 doses every 48 hours should adequately treat your infection. Once you have received the 3 doses of gentamicin your urologist or primary care doctor should exchange your suprapubic catheter. Please return to the ER if you develop fevers, have flank pain or uncontrolled vomiting
[2019-11-29 19:29] LABS: DIFFERENTIAL COMMENT MANUAL DIFFERENTIAL; EOSINOPHILS # (MANUAL) 0.1 10^3/uL (0-0.7); LYMPHOCYTES # (MANUAL) 1.1 10^3/uL (1.5-3.5); LYMPHOCYTES % (MANUAL) 16 %; MONOCYTES # (MANUAL) 0.5 10^3/uL (0.0-1.0); PLATELET ESTIMATE, MANUAL NORMAL (130-450,000) (NORMAL); PLATELET MORPHOLOGY NORMAL APPEARANCE (NORMAL); RBC MORPHOLOGY (MULTIPLE) NORMAL APPEARANCE (NORMAL)
[2019-11-29 21:05] VITALS: BP 129/72
--- NOTE | 2019-11-30 15:08 | ED Physician Documentation ---
ED Addendum - Addendum Addendum: 11/30/19 15:07 Confirmed plan with pharmacist, patient is to return at the 48-hour yann and have a trough done, further dosing based on that.
== END 2019-11-29 21:26 | disposition home or self-care (01) ==
LOC: EDUNIT# → ED 18:23
DX: T83.518A Infection and inflammatory reaction due to other urinary catheter, initial encounter (principal); B96.4 Proteus (mirabilis) (morganii) as the cause of diseases classified elsewhere
CPT/HCPCS: 36415; 80053; 83690; 85025; 96365; 99283; 99284; J1580

== ENCOUNTER 2019-11-29 21:26 | Outpatient (CLI) | payer OTHER | END 2019-11-29 21:27 | disposition home or self-care (01) | LOC: EMS 21:26 | PROVIDERS: ATTEND Surgery | DX: N39.0 Urinary tract infection, site not specified (principal); I69.954 Hemiplegia and hemiparesis following unspecified cerebrovascular disease affecting left non-dominant side; Z74.01 Bed confinement status | CPT/HCPCS: A0425; A0428 ==

== ENCOUNTER 2019-12-01 17:20 | Outpatient (CLI) | payer OTHER | END 2019-12-01 17:21 | disposition critical access hospital (66) | LOC: EMS 17:20 | PROVIDERS: ATTEND Surgery | DX: R39.89 Other symptoms and signs involving the genitourinary system (principal) | CPT/HCPCS: A0425; A0429 ==

== ENCOUNTER 2019-12-01 17:49 | Emergency (ER) | payer OTHER ==
--- NOTE | 2019-12-01 17:57 | ED Physician Documentation ---
PD HPI MALE - Stated complaint Stated Complaint: IV THERAPY - History obtained from History obtained from: Patient, EMS - Additional information Additional information: 74-year-old gentleman with history of suprapubic catheter presented for UTI and was found to have a Proteus mirabilis that was only sensitive to gentamicin and tobramycin. He had a first dose of gentamicin, 5 mix per keg at approximately 5 PM on November 28 and presents for re-dosing. PD PAST MEDICAL HISTORY - Past Medical History Cardiovascular: Hypertension, High cholesterol, [place], Atrial fibrillation Respiratory: None Neuro: CVA, Peripheral neuropathy Endocrine/Autoimmune: Type 2 diabetes, HyPOthyroidism GI: None : Indwelling catheter HEENT: None Musculoskeletal: Hemiplegia Derm: None - Past Surgical History Past Surgical History: Yes General: Bowel surgery Ortho: Spine surgery Cardiovascular: CABG - Present Medications Home Medications: Ambulatory Orders Medication Instructions Recorded Confirmed Amiodarone [Pacerone] 200 mg PO DAILY 02/20/18 06/21/19 Apixaban [Eliquis] 5 mg PO BID 02/20/18 06/21/19 Fluticasone [Flonase] 2 sprays JUAN C DAILY PRN 02/20/18 06/21/19 Gabapentin 300 mg PO BID 02/20/18 06/21/19 Insulin Glargine [Lantus Solostar] 20 unit SQ QPM 02/20/18 06/21/19 Losartan [Cozaar] 12.5 mg PO DAILY 02/20/18 06/21/19 Docusate Sodium 200 mg PO DAILY PRN 05/05/19 06/21/19 Levothyroxine Sodium 150 mcg PO QDAC 05/05/19 06/21/19 Magnesium Oxide 400 mg PO 1200,1900 05/05/19 06/21/19 Melatonin 5 mg PO QPM 05/05/19 06/21/19 Metoprolol Succinate 50 mg PO BID 05/05/19 06/21/19 Mirtazapine 15 mg PO QPM 05/05/19 06/21/19 Oxybutynin Chloride 5 mg PO BID 05/05/19 06/21/19 Acetaminophen 325 mg PO Q8HR PRN 06/21/19 06/21/19 Atorvastatin [Lipitor] 40 mg PO QPM 06/21/19 06/21/19 Carboxymethylcellulose Sodium 15 ml OP BID PRN 06/21/19 06/21/19 [Artificial Tears] Dextrose [Glucose] 4 gm PO DAILY PRN 06/21/19 06/21/19 Glycerin Adult Supp [Glycerin] 2 gm [place] ONCE PRN 06/21/19 06/21/19 Polyethylene Glycol 3350 17 gm PO DAILY 06/21/19 06/21/19 [Powderlax] Tamsulosin HCl [Flomax] 0.8 mg PO QPM 06/21/19 06/21/19 raNITIdine HCL [Heartburn Relief] 150 mg PO BID 06/21/19 06/21/19 Cefdinir 300 mg PO BID #20 capsule 06/22/19 Cephalexin [Keflex] 500 mg PO TID #20 capsule 11/27/19 - Allergies Allergies/Adverse Reactions: Allergies Allergy/AdvReac Type Severity Reaction Status Date / Time codeine Allergy Unknown Verified 12/01/19 17:56 diazepam Allergy Unknown Verified 12/01/19 17:56 meperidine [From Demerol] Allergy Unknown Verified 12/01/19 17:56 simvastatin Allergy Unknown Verified 12/01/19 17:56 hydrocodone [From Vicodin] AdvReac Itching Verified 12/01/19 17:56 - Social History Does the pt smoke?: No Smoking Status: Never smoker Does the pt drink ETOH?: Yes Does the pt have substance abuse?: No - POLST Patient has POLST: No Results - Vitals Vitals: Vital Signs - 24 hr 12/01/19 17:57 Temperature 36.9 C Heart Rate 61 Respiratory 20 Rate Blood Pressure 160/85 H O2 Saturation 96 Oxygen O2 Source Room air - Labs Labs: Laboratory Tests 12/01/19 12/01/19 18:00 18:00 WBC 6.3 RBC 4.23 L Hgb 13.1 L Hct 38.8 L MCV 91.7 MCH 31.0 MCHC 33.8 RDW 14.0 Plt Count 143 MPV 9.7 Neut # (Auto) 4.2 Lymph # (Auto) 1.4 L [place] # (Auto) 0.4 Eos # (Auto) 0.3 Baso # (Auto) 0.0 Absolute Nucleated RBC 0.00 Nucleated RBC % 0.0 Sodium 140 Potassium 4.1 Chloride 108 Carbon Dioxide 22 Anion Gap 10.0 BUN 27 H Creatinine 1.3 H Estimated GFR (MDRD) 54 L Glucose 222 H Calcium 8.8 Last Dose Date 11/29/19 Last Dose Time UNK Random Gentamicin 1.4 PD MEDICAL DECISION MAKING - ED course ED course: 74 yom with catheter associated UTI presents for re-dosing of gentamicin as previously arranged. A level was obtained and confirmed with the pharmacist MARIO ALBERTO Samano the dosing which will be 560 mg every 48 hours times a total of 4 doses. Departure - Departure Disposition: Home, Self Care Clinical Impression: UTI (urinary tract infection) due to urinary indwelling catheter Qualifiers: Indwelling urinary catheter type: cystostomy catheter Encounter type: subsequent encounter Qualified Code(s): T83.510D - Infection and inflammatory reaction due to cystostomy catheter, subsequent encounter; N39.0 - Urinary tract infection, site not specified Condition: Good Record reviewed to determine appropriate education?: Yes Instructions: ED UTI Cystitis Male Comments: Return approximately 5 PM on the and the of this month for repeat dosing of gentamicin 560 mg for a total of 4 doses. You got the second dose tonight.
[2019-12-01 18:25] LABS: BASOPHILS % (AUTO) 0.5 %; EOSINOPHILS # (AUTO) 0.3 10^3/uL (0.0-0.7); EOSINOPHILS % (AUTO) 4.8 %; HGB - HEMOGLOBIN 13.1 g/dL (14.0-18.0); LYMPHOCYTES # (AUTO) 1.4 10^3/uL (1.5-3.5); LYMPHOCYTES % (AUTO) 21.4 %; MEAN CORPUSCULAR HGB CONC 33.8 g/dL (32.0-36.0); MEAN CORPUSCULAR VOLUME 91.7 fL (80.0-94.0); MEAN PLATELET VOLUME 9.7 fL (7.4-11.4); MONOCYTES # (AUTO) 0.4 10^3/uL (0.0-1.0); MONOCYTES % (AUTO) 6.2 %; NEUTROPHILS # (AUTO) 4.2 10^3/uL (1.5-6.6); NEUTROPHILS % (AUTO) 66.8 %; PLT - PLATELET COUNT 143 10^3/uL (130-450); RED BLOOD COUNT 4.23 10^6/uL (4.70-6.10); WHITE BLOOD COUNT 6.3 x10^3/uL (4.8-10.8)
[2019-12-01 18:40] LABS: BUN - BLOOD UREA NITROGEN 27 mg/dL (6-20); CALCIUM 8.8 mg/dL (8.5-10.3); CARBON DIOXIDE - CO2 22 mmol/L (21-32); CHLORIDE 108 mmol/L (101-111); CREATININE 1.3 mg/dL (0.6-1.2); GENTAMICIN,RANDOM 1.4 ug/mL; GLUCOSE 222 mg/dL (70-100); SODIUM 140 mmol/L (135-145)
[2019-12-01] MEDS ORDERED: GENTAMICIN IV STA (18:57)
[2019-12-01] MEDS ORDERED: SODIUM CHLORIDE 0.9% IV STA (18:57)
[2019-12-01] MEDS ORDERED: GENTAMICIN 80 MG/2 ML VIAL ONE (19:10)
[2019-12-01 20:33] VITALS: BP 132/71
== END 2019-12-01 21:12 | disposition home or self-care (01) ==
LOC: EDUNIT# → ED 17:49
DX: T83.510D Infection and inflammatory reaction due to cystostomy catheter, subsequent encounter (principal); N39.0 Urinary tract infection, site not specified; Z86.73 Personal history of transient ischemic attack (TIA), and cerebral infarction without residual deficits; G81.90 Hemiplegia, unspecified affecting unspecified side; E11.42 Type 2 diabetes mellitus with diabetic polyneuropathy; I10 Essential (primary) hypertension; E78.00 Pure hypercholesterolemia, unspecified; I25.2 Old myocardial infarction; Z95.1 Presence of aortocoronary bypass graft
CPT/HCPCS: 36415; 80048; 80170; 85025; 96365; 99281; 99284; J1580

== ENCOUNTER 2019-12-01 21:15 | Outpatient (CLI) | payer OTHER | END 2019-12-01 21:16 | disposition home or self-care (01) | LOC: EMS 21:15 | PROVIDERS: ATTEND Surgery | DX: N39.0 Urinary tract infection, site not specified (principal); I69.354 Hemiplegia and hemiparesis following cerebral infarction affecting left non-dominant side | CPT/HCPCS: A0425; A0428 ==

== ENCOUNTER 2019-12-03 17:25 | Outpatient (CLI) | payer OTHER | END 2019-12-03 17:26 | disposition critical access hospital (66) | LOC: EMS 17:25 | PROVIDERS: ATTEND Surgery | DX: N39.0 Urinary tract infection, site not specified (principal) | CPT/HCPCS: A0425; A0429 ==

== ENCOUNTER 2019-12-03 17:56 | Emergency (ER) | payer OTHER ==
--- NOTE | 2019-12-03 17:59 | ED Physician Documentation ---
PD HPI MALE - Stated complaint Stated Complaint: UTI - History obtained from History obtained from: Patient - Additional information Additional information: 74-year-old gentleman has a catheter associated UTI and returns as recommended for gentamicin infusion For nearly hallman resistant organism. Dosing was confirmed via levels on the last visit. He has no acute complaints. Review of Systems Constitutional: denies: Fever, Chills Cardiac: reports: Reviewed and negative Respiratory: reports: Reviewed and negative PD PAST MEDICAL HISTORY - Past Medical History Cardiovascular: Hypertension, High cholesterol, [place], Atrial fibrillation Respiratory: None Neuro: CVA, Peripheral neuropathy Endocrine/Autoimmune: Type 2 diabetes, HyPOthyroidism GI: None : Indwelling catheter HEENT: None Psych: Post traumatic stress disorder Musculoskeletal: Hemiplegia Derm: None - Past Surgical History Past Surgical History: Yes General: Bowel surgery Ortho: Spine surgery Cardiovascular: CABG - Present Medications Home Medications: Ambulatory Orders Medication Instructions Recorded Confirmed Amiodarone [Pacerone] 200 mg PO DAILY 02/20/18 06/21/19 Apixaban [Eliquis] 5 mg PO BID 02/20/18 06/21/19 Fluticasone [Flonase] 2 sprays JUAN C DAILY PRN 02/20/18 06/21/19 Gabapentin 300 mg PO BID 02/20/18 06/21/19 Insulin Glargine [Lantus Solostar] 20 unit SQ QPM 02/20/18 06/21/19 Losartan [Cozaar] 12.5 mg PO DAILY 02/20/18 06/21/19 Docusate Sodium 200 mg PO DAILY PRN 05/05/19 06/21/19 Levothyroxine Sodium 150 mcg PO QDAC 05/05/19 06/21/19 Magnesium Oxide 400 mg PO 1200,1900 05/05/19 06/21/19 Melatonin 5 mg PO QPM 05/05/19 06/21/19 Metoprolol Succinate 50 mg PO BID 05/05/19 06/21/19 Mirtazapine 15 mg PO QPM 05/05/19 06/21/19 Oxybutynin Chloride 5 mg PO BID 05/05/19 06/21/19 Acetaminophen 325 mg PO Q8HR PRN 06/21/19 06/21/19 Atorvastatin [Lipitor] 40 mg PO QPM 06/21/19 06/21/19 Carboxymethylcellulose Sodium 15 ml OP BID PRN 06/21/19 06/21/19 [Artificial Tears] Dextrose [Glucose] 4 gm PO DAILY PRN 06/21/19 06/21/19 Glycerin Adult Supp [Glycerin] 2 gm [place] ONCE PRN 06/21/19 06/21/19 Polyethylene Glycol 3350 17 gm PO DAILY 06/21/19 06/21/19 [Powderlax] Tamsulosin HCl [Flomax] 0.8 mg PO QPM 06/21/19 06/21/19 raNITIdine HCL [Heartburn Relief] 150 mg PO BID 06/21/19 06/21/19 Cefdinir 300 mg PO BID #20 capsule 06/22/19 Cephalexin [Keflex] 500 mg PO TID #20 capsule 11/27/19 - Allergies Allergies/Adverse Reactions: Allergies Allergy/AdvReac Type Severity Reaction Status Date / Time codeine Allergy Unknown Verified 12/01/19 17:56 diazepam Allergy Unknown Verified 12/01/19 17:56 meperidine [From Demerol] Allergy Unknown Verified 12/01/19 17:56 simvastatin Allergy Unknown Verified 12/01/19 17:56 hydrocodone [From Vicodin] AdvReac Itching Verified 12/01/19 17:56 - Social History Does the pt smoke?: No Smoking Status: Never smoker Does the pt drink ETOH?: Yes Does the pt have substance abuse?: No - Immunizations Immunizations are current?: No - POLST Patient has POLST: No PD ED PE NORMAL - Vitals Vital signs reviewed: Yes - General General: Alert and oriented X 3, No acute distress - Neuro Neuro: Alert and oriented X 3, Normal speech - Psych Psych: Normal mood, Normal affect Results - Vitals Vitals: Oxygen O2 Source Room air Departure - Departure Disposition: Home, Self Care Clinical Impression: UTI (urinary tract infection) due to urinary indwelling catheter Qualifiers: Indwelling urinary catheter type: cystostomy catheter Encounter type: initial encounter Qualified Code(s): T83.510A - Infection and inflammatory reaction due to cystostomy catheter, initial encounter; N39.0 - Urinary tract infection, site not specified Condition: Good Record reviewed to determine appropriate education?: Yes Instructions: ED UTI Cystitis Male Comments: Return for the last time Tuesday evening around 5:00 for last dose of gentamicin, 560 mg. Sooner if worsening.
[2019-12-03] MEDS: SODIUM CHLORIDE 0.9% IV STA ×2 (18:31)
[2019-12-03] MEDS: GENTAMICIN PER PHARMACY IV STA (18:31)
[2019-12-03] MEDS: GENTAMICIN IV STA (18:31)
[2019-12-03 19:51] VITALS: BP 137/66
== END 2019-12-03 19:50 | disposition home or self-care (01) ==
LOC: EDUNIT# → ED 17:56
DX: T83.511D Infection and inflammatory reaction due to indwelling urethral catheter, subsequent encounter (principal); N39.0 Urinary tract infection, site not specified; I10 Essential (primary) hypertension; I48.91 Unspecified atrial fibrillation; I25.2 Old myocardial infarction; E11.42 Type 2 diabetes mellitus with diabetic polyneuropathy; E03.9 Hypothyroidism, unspecified; Z79.4 Long term (current) use of insulin; Z79.01 Long term (current) use of anticoagulants; I69.959 Hemiplegia and hemiparesis following unspecified cerebrovascular disease affecting unspecified side
CPT/HCPCS: 96365; 99283

== ENCOUNTER 2019-12-03 19:53 | Outpatient (CLI) | payer OTHER | END 2019-12-03 19:54 | disposition home or self-care (01) | LOC: EMS 19:53 | PROVIDERS: ATTEND Surgery | DX: N39.0 Urinary tract infection, site not specified (principal); Z74.01 Bed confinement status; I69.359 Hemiplegia and hemiparesis following cerebral infarction affecting unspecified side | CPT/HCPCS: A0425; A0428 ==

== ENCOUNTER 2019-12-05 16:51 | Outpatient (CLI) | payer OTHER | END 2019-12-05 16:52 | disposition critical access hospital (66) | LOC: EMS 16:51 | PROVIDERS: ATTEND Surgery | DX: R10.9 Unspecified abdominal pain (principal); R39.89 Other symptoms and signs involving the genitourinary system; I69.354 Hemiplegia and hemiparesis following cerebral infarction affecting left non-dominant side; Z74.01 Bed confinement status | CPT/HCPCS: A0425; A0428 ==

== ENCOUNTER 2019-12-05 17:13 | Emergency (ER) | payer OTHER ==
[~2019-12-05 17:13] MED LIST: GENTAMICIN IV STA; SODIUM CHLORIDE 0.9% IV STA
--- NOTE | 2019-12-05 17:17 | ED Physician Documentation ---
PD HPI FEMALE - Stated complaint Stated Complaint: IV INFUSION - History of Present Illness Associated symptoms: No: Fever - Additional information Additional information: 74-year-old gentleman with nearly hallman resistant catheter associated UTI. Returns as recommended for fourth and final gentamicin infusion. He has no acute complaints. Review of Systems Constitutional: denies: Fever, Chills GI: reports: Reviewed and negative : reports: Reviewed and negative PD PAST MEDICAL HISTORY - Past Medical History Cardiovascular: Hypertension, High cholesterol, [place], Atrial fibrillation Respiratory: None Neuro: CVA, Peripheral neuropathy Endocrine/Autoimmune: Type 2 diabetes, HyPOthyroidism GI: None : Indwelling catheter HEENT: None Psych: Post traumatic stress disorder Musculoskeletal: Hemiplegia Derm: None - Past Surgical History Past Surgical History: Yes General: Bowel surgery Ortho: Spine surgery Cardiovascular: CABG - Present Medications Home Medications: Ambulatory Orders Medication Instructions Recorded Confirmed Amiodarone [Pacerone] 200 mg PO DAILY 02/20/18 06/21/19 Apixaban [Eliquis] 5 mg PO BID 02/20/18 06/21/19 Fluticasone [Flonase] 2 sprays JUAN C DAILY PRN 02/20/18 06/21/19 Gabapentin 300 mg PO BID 02/20/18 06/21/19 Insulin Glargine [Lantus Solostar] 20 unit SQ QPM 02/20/18 06/21/19 Losartan [Cozaar] 12.5 mg PO DAILY 02/20/18 06/21/19 Docusate Sodium 200 mg PO DAILY PRN 05/05/19 06/21/19 Levothyroxine Sodium 150 mcg PO QDAC 05/05/19 06/21/19 Magnesium Oxide 400 mg PO 1200,1900 05/05/19 06/21/19 Melatonin 5 mg PO QPM 05/05/19 06/21/19 Metoprolol Succinate 50 mg PO BID 05/05/19 06/21/19 Mirtazapine 15 mg PO QPM 05/05/19 06/21/19 Oxybutynin Chloride 5 mg PO BID 05/05/19 06/21/19 Acetaminophen 325 mg PO Q8HR PRN 06/21/19 06/21/19 Atorvastatin [Lipitor] 40 mg PO QPM 06/21/19 06/21/19 Carboxymethylcellulose Sodium 15 ml OP BID PRN 06/21/19 06/21/19 [Artificial Tears] Dextrose [Glucose] 4 gm PO DAILY PRN 06/21/19 06/21/19 Glycerin Adult Supp [Glycerin] 2 gm SD ONCE PRN 06/21/19 06/21/19 Polyethylene Glycol 3350 17 gm PO DAILY 06/21/19 06/21/19 [Powderlax] Tamsulosin HCl [Flomax] 0.8 mg PO QPM 06/21/19 06/21/19 raNITIdine HCL [Heartburn Relief] 150 mg PO BID 06/21/19 06/21/19 Cefdinir 300 mg PO BID #20 capsule 06/22/19 Cephalexin [Keflex] 500 mg PO TID #20 capsule 11/27/19 - Allergies Allergies/Adverse Reactions: Allergies Allergy/AdvReac Type Severity Reaction Status Date / Time codeine Allergy Unknown Verified 12/01/19 17:56 diazepam Allergy Unknown Verified 12/01/19 17:56 meperidine [From Demerol] Allergy Unknown Verified 12/01/19 17:56 simvastatin Allergy Unknown Verified 12/01/19 17:56 hydrocodone [From Vicodin] AdvReac Itching Verified 12/01/19 17:56 - Social History Does the pt smoke?: No Smoking Status: Never smoker Does the pt drink ETOH?: Yes Does the pt have substance abuse?: No - Immunizations Immunizations are current?: No - POLST Patient has POLST: No PD ED PE NORMAL - Vitals Vital signs reviewed: Yes - General General: Alert and oriented X 3, No acute distress - Extremities Extremities: Other (Sequela of prior stroke on the left) - Neuro Neuro: Alert and oriented X 3, Normal speech Results - Vitals Vitals: Oxygen O2 Source Room air Departure - Departure Disposition: Home, Self Care Clinical Impression: UTI (urinary tract infection) Qualifiers: Urinary tract infection type: catheter-associated UTI Indwelling urinary catheter type: cystostomy catheter Encounter type: initial encounter Qualified Code(s): T83.510A - Infection and inflammatory reaction due to cystostomy catheter, initial encounter; N39.0 - Urinary tract infection, site not specified Condition: Good Record reviewed to determine appropriate education?: Yes Instructions: ED UTI Cystitis Male Comments: Today received your last dosing of gentamicin. Return for new or worsening symptoms and follow-up with your doctor, next available appointment.
[2019-12-05 19:59] VITALS: BP 119/68
== END 2019-12-05 20:16 | disposition home or self-care (01) ==
LOC: EDUNIT# → ED 17:13
DX: T83.510A Infection and inflammatory reaction due to cystostomy catheter, initial encounter (principal); I10 Essential (primary) hypertension; E11.42 Type 2 diabetes mellitus with diabetic polyneuropathy; Z79.4 Long term (current) use of insulin
CPT/HCPCS: 96365; 99283; 99284; J1580

== ENCOUNTER 2019-12-05 20:18 | Outpatient (CLI) | payer OTHER | END 2019-12-05 20:19 | disposition home or self-care (01) | LOC: EMS 20:18 | PROVIDERS: ATTEND Surgery | DX: N39.0 Urinary tract infection, site not specified (principal); I69.354 Hemiplegia and hemiparesis following cerebral infarction affecting left non-dominant side | CPT/HCPCS: A0425; A0428 ==

== ENCOUNTER 2020-12-10 11:29 | Outpatient (CLI) | payer MEDICARE | END 2020-12-10 11:30 | disposition critical access hospital (66) | LOC: EMS 11:29 | DX: Z46.6 Encounter for fitting and adjustment of urinary device (principal) | CPT/HCPCS: A0425; A0429 ==

== ENCOUNTER 2020-12-10 11:56 | Emergency (ER) | payer MEDICARE ==
--- NOTE | 2020-12-10 12:28 | ED Physician Documentation ---
PD HPI MALE - Stated complaint Stated Complaint: CATH ISSUE - Chief complaint Chief Complaint: General - History obtained from History obtained from: Patient, EMS, Caregiver - History of Present Illness Timing - onset: Today Timing - duration: Hours Timing - details: Abrupt onset (he had chronic suprapubic mcwilliams and was getting it changed by home health nurse today, who could not get new one in so referred him to ER to get it done.) Associated symptoms: Mcwilliams problem (Nurse unable to get new one in today.) PD HPI MALE CONTRIB FACTORS: Indwelling catheter (suprapubic) Similar symptoms before: Has not had sx before Review of Systems Constitutional: denies: Fever Cardiac: denies: Chest pain / pressure Respiratory: denies: Dyspnea, Cough GI: denies: Abdominal Pain, Vomiting, Diarrhea PD PAST MEDICAL HISTORY - Past Medical History Cardiovascular: Hypertension, High cholesterol, [place], Atrial fibrillation Respiratory: None Neuro: CVA, Peripheral neuropathy Endocrine/Autoimmune: Type 2 diabetes, HyPOthyroidism GI: None : Indwelling catheter HEENT: None Psych: Post traumatic stress disorder Musculoskeletal: Hemiplegia Derm: None - Past Surgical History Past Surgical History: Yes General: Bowel surgery Ortho: Spine surgery Cardiovascular: CABG - Present Medications Home Medications: Ambulatory Orders Medication Instructions Recorded Confirmed Amiodarone [Pacerone] 200 mg PO DAILY 02/20/18 06/21/19 Apixaban [Eliquis] 5 mg PO BID 02/20/18 06/21/19 Fluticasone [Flonase] 2 sprays JUAN C DAILY PRN 02/20/18 06/21/19 Gabapentin 300 mg PO BID 02/20/18 06/21/19 Insulin Glargine [Lantus Solostar] 20 unit SQ QPM 02/20/18 06/21/19 Losartan [Cozaar] 12.5 mg PO DAILY 02/20/18 06/21/19 Docusate Sodium 200 mg PO DAILY PRN 05/05/19 06/21/19 Levothyroxine Sodium 150 mcg PO QDAC 05/05/19 06/21/19 Magnesium Oxide 400 mg PO 1200,1900 05/05/19 06/21/19 Melatonin 5 mg PO QPM 05/05/19 06/21/19 Metoprolol Succinate 50 mg PO BID 05/05/19 06/21/19 Mirtazapine 15 mg PO QPM 05/05/19 06/21/19 Oxybutynin Chloride 5 mg PO BID 05/05/19 06/21/19 Acetaminophen 325 mg PO Q8HR PRN 06/21/19 06/21/19 Atorvastatin [Lipitor] 40 mg PO QPM 06/21/19 06/21/19 Carboxymethylcellulose Sodium 15 ml OP BID PRN 06/21/19 06/21/19 [Artificial Tears] Dextrose [Glucose] 4 gm PO DAILY PRN 06/21/19 06/21/19 Glycerin Adult Supp [Glycerin] 2 gm [place] ONCE PRN 06/21/19 06/21/19 Polyethylene Glycol 3350 17 gm PO DAILY 06/21/19 06/21/19 [Powderlax] Tamsulosin HCl [Flomax] 0.8 mg PO QPM 06/21/19 06/21/19 raNITIdine HCL [Heartburn Relief] 150 mg PO BID 06/21/19 06/21/19 Cefdinir 300 mg PO BID #20 capsule 06/22/19 cephALEXin [Keflex] 500 mg PO TID #20 capsule 11/27/19 - Allergies Allergies/Adverse Reactions: Allergies Allergy/AdvReac Type Severity Reaction Status Date / Time codeine Allergy Unknown Verified 12/10/20 12:27 diazepam Allergy Unknown Verified 12/10/20 12:27 meperidine [From Demerol] Allergy Unknown Verified 12/10/20 12:27 simvastatin Allergy Unknown Verified 12/10/20 12:27 hydrocodone [From Vicodin] AdvReac Itching Verified 12/10/20 12:27 - Social History Does the pt smoke?: No Smoking Status: Never smoker Does the pt drink ETOH?: Yes Does the pt have substance abuse?: No - Immunizations Immunizations are current?: No - POLST Patient has POLST: No PD ED PE NORMAL - Vitals Vital signs reviewed: Yes - General General: Alert and oriented X 3, No acute distress, Well developed/nourished - Abdomen Abdomen: Normal bowel sounds, Soft, Non distended, Other (right of center suprapubic hole for catheter without signs of infection. Mild dried blood in the area c/w recent tube attempt and irritation. No purulence. ) Results - Vitals Vitals: Vital Signs - 24 hr 12/10/20 12/10/20 12:22 15:26 Temperature 36.2 C L Heart Rate 92 86 Respiratory 16 16 Rate Blood Pressure 143/73 H 137/80 H O2 Saturation 97 96 Oxygen O2 Source Room air PD MEDICAL DECISION MAKING - ED course Complexity details: re-evaluated patient (the hole was tight and nurse/myself unable to pass same size mcwilliams into area. could get 12 F in. ), considered differential (mcwilliams change attempt by home health nurse. ), d/w patient Departure - Departure Disposition: 01 Home, Self Care Clinical Impression: Encounter for Mcwilliams catheter replacement Suprapubic catheter dysfunction Qualifiers: Encounter type: initial encounter Qualified Code(s): T83.010A - Breakdown (mechanical) of cystostomy catheter, initial encounter Condition: Stable Record reviewed to determine appropriate education?: Yes Comments: We were able to get a smaller catheter in for drainage. Follow-up with your urologist regarding re-replacement of the catheter if they wish a larger size as it would likely need some dilation of the area to facilitate the catheter in. Continue usual medications and catheter care. Discharge Date/Time: 12/10/20 15:27
[2020-12-10 15:27] VITALS: BP 137/80
== END 2020-12-10 15:27 | disposition home or self-care (01) ==
LOC: EDUNIT# → ED 11:56
DX: T83.010A Breakdown (mechanical) of cystostomy catheter, initial encounter (principal); I10 Essential (primary) hypertension; I48.91 Unspecified atrial fibrillation; Z79.01 Long term (current) use of anticoagulants; Z95.5 Presence of coronary angioplasty implant and graft
CPT/HCPCS: 51702; 99282; 99283

== ENCOUNTER 2020-12-10 15:36 | Outpatient (CLI) | payer MEDICARE | END 2020-12-10 15:37 | disposition home or self-care (01) | LOC: EMS 15:36 | PROVIDERS: ATTEND Emergency Medicine | DX: Z74.01 Bed confinement status (principal) | CPT/HCPCS: A0425; A0428 ==